=== PATIENT | male | born 1960 | race Caucasian/White ===

== ENCOUNTER 2017-05-07 23:40 | Observation (INO) ==
[2017-05-08 00:44] LABS: Basophils % 0.3 %; Eosinophils # 0.1 K/mcL (0.0-0.6); Eosinophils % 1.5 %; Hematocrit 41.3 % (37.5-50.1); Hemoglobin 13.9 g/dL (12.9-16.9); Immature Granulocytes % 0.3 % (0-4); Immature Platelets 5.7 % (1.1-6.1); Lymphocytes # 1.5 K/mcL (0.6-4.6); Lymphocytes % 22.7 %; Mean Corpuscular HGB Conc 33.7 g/dL (31.6-35.5); Mean Platelet Volume 11.4 fL (9.4-12.4); Monocytes # 0.4 K/mcL (0.0-1.3); Monocytes % 6.7 %; Neutrophils # 4.5 K/mcL (1.6-8.9); Platelet Count 131 K/mcL (140-400); Red Blood Count 4.49 M/mcL (4.19-5.50); Segmented Neutrophils % 68.5 %
[2017-05-08 00:56] LABS: BUN/Creatinine Ratio 17 (6-26); Blood Urea Nitrogen 17 mg/dL (8-26); Calcium 9.4 mg/dL (8.6-10.8); Carbon Dioxide 26 mEq/L (19-29); Chloride 107 mEq/L (98-109); Glucose 91 mg/dL (70-99); Osmolality,Calculated 293 (280-300); Sodium 141 mEq/L (136-145); eGFR For African Americans > 60 (> 60); eGFR For Non-African Americans > 60 (> 60)
[2017-05-08] MEDS ORDERED: Aspirin 81 MG TAB.CHEW PO ONE (02:38)
[2017-05-08] MEDS ORDERED: Nitroglycerin 0.4 MG TAB.SUBL SL PRN (02:39)
--- NOTE | 2017-05-08 03:16 | Emergency Department Note ---
Disposition Clinical Impression: Chest pain Qualifiers: Chest pain type: unspecified Qualified Code(s): R07.9 - Chest pain, unspecified Disposition: Admitted As Inpatient Condition: Good Time of Disposition: 04:33 Chest Pain HPI - General Chief Complaint: ED Chest Pain Stated Complaint: chest pain, leg pain, runny nose Time Seen by Provider: 05/08/17 02:22 Source: patient Limitations: no limitations Vital Signs Reviewed: Yes Nursing Notes Reviewed: Yes - History of Present Illness HPI Narrative: This is a 57-year-old male with a past medical history of smoking, hypertension who presents to the emergency department with chest pressure that started about 7 hours ago. He states that he was lying down when it occurred. Nothing has made it better. He denies any radiation into his arms or back. He denies that the chest pressure was exertional. He denies nausea, vomiting, diaphoresis. Patient states that he is having ongoing cold for the past 5 days. He states that he is having cough that is productive of yellow sputum. Severity scale (1-10): 6 - Related Data Home Medications Medication Instructions Recorded Confirmed Lisinopril-HCTZ 20-12.5 [Prinzide 1 tab PO DAILY 05/08/17 05/08/17 20-12.5] Omeprazole [PriLOSEC] 40 mg PO DAILY 05/08/17 05/08/17 Tramadol HCl [Ultram] 50 mg PO QID PRN 05/08/17 05/08/17 diazePAM [Valium] 10 mg PO BID 05/08/17 05/08/17 Previous Rx's Medication Instructions Recorded Aspirin [Lo-Dose Aspirin EC] 81 mg PO DAILY #30 tablet. 05/09/17 Atorvastatin [Lipitor] 40 mg PO HS #30 tablet 05/09/17 Metoprolol [Lopressor] 12.5 mg PO BID #30 tab 05/09/17 Nitroglycerin 0.4 mg SL Q5MIN PRN #5 05/09/17 Allergies Allergy/AdvReac Type Severity Reaction Status Date / Time No Known Allergies Allergy Verified 04/02/16 13:22 All systems ED: reviewed and negative except as stated. Constitutional: Reports: fever Cardiovascular: Reports: chest pain (Pressure that "feels like a truck is pressing his chest") Respiratory: Reports: cough, wheezes, sputum production. Denies: hemoptysis Gastrointestinal: Denies: abdominal pain, nausea, vomiting, diarrhea, constipation Musculoskeletal: Denies: back pain, neck pain Chest Pain PMH - Past Medical History Medical history: Reports: GERD, hypertension, other Psychiatric history: Reports: no psych history - Social History Smoking Status: Current every day smoker Alcohol use: Reports: none Drug use: Reports: none Physical Exam - General Limitations: no limitations General appearance: alert, in no apparent distress - Head Head exam: atraumatic, normocephalic - Eye Eye exam: Absent: scleral icterus, conjunctival injection - ENT ENT exam: normal oropharynx, mucous membranes moist - Neck Neck exam: Present: full ROM, trachea midline. Absent: tenderness, meningismus - Chest Chest inspection: Present: normal inspection, symmetric chest wall rise. Absent : tenderness, rash - Respiratory Respiratory exam: Present: wheezes. Absent: respiratory distress, accessory muscle use - Cardiovascular Cardiovascular exam: Present: regular rate, normal rhythm, normal heart sounds - Abdominal Exam Abdominal exam: Present: soft, Non-Tender. Absent: distention, guarding, rebound, rigidity - Extremities Exam Extremities exam: Present: normal capillary refill, other (Tenderness of the right lateral malleolus). Absent: joint swelling - Neurological Exam Neurological exam: Present: alert, oriented X3 - Psychiatric Psychiatric exam: Present: normal affect, normal mood - Skin Skin exam: Present: warm, dry, intact Course Course Narrative: This is a 57-year-old male with a past medical history of hypertension, smoking. He presents to the emergency department with a chief complaint of chest pressure that started several hours ago. He states that he came into the emergency department because he had never had pain like this before. This is immediately concerning for myocardial infarction. An EKG, chest x-ray, troponin , CBC, BMP were obtained. The patient was also given nitroglycerin and 325 of aspirin. Ankle X-Ray 05/08/17 03:08 IMPRESSION: Remote ORIF. No evidence of an acute injury. D/ / Ger Luque MD / Ger Luque MD Interpreting Provider: Ger Luque MD Chest X-Ray 05/08/17 23:51 IMPRESSION: 1. No acute cardiopulmonary disease. D/ / Edison Bravo MD / Edison Bravo MD Interpreting Provider: Edison Bravo MD Vital Signs Temperature 97.6 F 05/07/17 23:42 Pulse Rate 66 05/07/17 23:42 Respiratory Rate 18 05/07/17 23:42 Blood Pressure 142/91 05/07/17 23:42 O2 Sat by Pulse Oximetry 99 05/07/17 23:42 Temperature 97.8 F 05/08/17 05:01 Pulse Rate 59 05/08/17 05:01 Respiratory Rate 16 05/08/17 05:01 Blood Pressure 128/84 05/08/17 05:01 O2 Sat by Pulse Oximetry 98 05/08/17 05:01 Oxygen Delivery Oxygen Delivery Room Air - Reevaluation(s) Reevaluation #1: The patient's chest x-ray was negative, he did not have any ischemic changes on his EKG, and his initial troponin was negative. This nitroglycerin relieved his pain. At this time, I believe this patient should be admitted to the hospital for observation due to this being a new onset chest pressure that he had never had before along with his risk factors of hypertension, history of smoking, being a male, and also being 57. Nitroglycerin relieving his pain concerns me even more for cardiac ischemia as the cause for his chest pain. I spoke with Dr. Meeks on the phone, and he agreed to admit the patient for further observation. Time: 04:19 Vital Signs Temperature 97.6 F 05/07/17 23:42 Pulse Rate 66 05/07/17 23:42 Respiratory Rate 18 05/07/17 23:42 Blood Pressure 142/91 05/07/17 23:42 O2 Sat by Pulse Oximetry 99 05/07/17 23:42 Temperature 97.6 F 05/09/17 11:49 Pulse Rate 59 05/09/17 11:49 Respiratory Rate 16 05/09/17 11:49 Blood Pressure 134/82 05/09/17 11:49 O2 Sat by Pulse Oximetry 98 05/09/17 11:49 Oxygen Delivery Oxygen Delivery Room Air Chest Pain - Medical Records Medical records reviewed: Yes I reviewed the patient's medical records. - Lab Data Lab results reviewed: Yes I reviewed the patient's lab results. Result diagrams: 05/08/17 00:35 05/08/17 00:35 Lab Results 05/08/17 05/08/17 05/08/17 Range/Units 00:35 00:35 00:35 WBC 6.6 (4.3-11.1) K/mcL RBC 4.49 (4.19-5.50) M/mcL Hgb 13.9 (12.9-16.9) g/dL Hct 41.3 (37.5-50.1) % MCV 92.0 (83.0-100.0) fL MCH 31.0 (28.0-33.3) pg MCHC 33.7 (31.6-35.5) g/dL RDW 14.0 (11.5-14.5) % Plt Count 131 L (140-400) K/mcL MPV 11.4 (9.4-12.4) fL Immature Gran % 0.3 (0-4) % Seg Neutrophils % 68.5 % Lymphocytes % 22.7 % Monocytes % 6.7 % Eosinophils % 1.5 % Basophils % 0.3 % Neutrophils # 4.5 (1.6-8.9) K/mcL Lymphocytes # 1.5 (0.6-4.6) K/mcL Monocytes # 0.4 (0.0-1.3) K/mcL Eosinophils # 0.1 (0.0-0.6) K/mcL Basophils # 0.0 (0.0-0.2) K/mcL Immature Plt Fraction 5.7 (1.1-6.1) % Sodium 141 (136-145) mEq/L Potassium 4.0 (3.5-4.5) mEq/L Chloride 107 (98-109) mEq/L Carbon Dioxide 26 (19-29) mEq/L BUN 17 (8-26) mg/dL Creatinine 0.98 (0.72-1.25) mg/dL Est GFR ( Amer) > 60 (> 60) Est GFR (Non-Af Amer) > 60 (> 60) BUN/Creatinine Ratio 17 (6-26) Glucose 91 (70-99) mg/dL Calculated Osmolality 293 (280-300) Calcium 9.4 (8.6-10.8) mg/dL Troponin I 0.00 (0-0.03) ng/mL 05/08/17 Range/Units 04:06 WBC (4.3-11.1) K/mcL RBC (4.19-5.50) M/mcL Hgb (12.9-16.9) g/dL Hct (37.5-50.1) % MCV (83.0-100.0) fL MCH (28.0-33.3) pg MCHC (31.6-35.5) g/dL RDW (11.5-14.5) % Plt Count (140-400) K/mcL MPV (9.4-12.4) fL Immature Gran % (0-4) % Seg Neutrophils % % Lymphocytes % % Monocytes % % Eosinophils % % Basophils % % Neutrophils # (1.6-8.9) K/mcL Lymphocytes # (0.6-4.6) K/mcL Monocytes # (0.0-1.3) K/mcL Eosinophils # (0.0-0.6) K/mcL Basophils # (0.0-0.2) K/mcL Immature Plt Fraction (1.1-6.1) % Sodium (136-145) mEq/L Potassium (3.5-4.5) mEq/L Chloride (98-109) mEq/L Carbon Dioxide (19-29) mEq/L BUN (8-26) mg/dL Creatinine (0.72-1.25) mg/dL Est GFR ( Amer) (> 60) Est GFR (Non-Af Amer) (> 60) BUN/Creatinine Ratio (6-26) Glucose (70-99) mg/dL Calculated Osmolality (280-300) Calcium (8.6-10.8) mg/dL Troponin I 0.01 (0-0.03) ng/mL - Radiology Data Radiology results reviewed: Yes I reviewed the patient's radiology results. - EKG Data EKG attestation: Yes I reviewed and interpreted this EKG. EKG results narrative: 05/07/2017 2348 Ventricular rate 66 bpm, OK interval 190 ms, QRS duration 95 ms, QT 399 ms, QTC 412 ms, normal axis. Sinus rhythm with a shortened OK interval. Left ventricular hypertrophy. RSR prime in leads V1 that is consistent with an EKG performed on 11/01/2001. There is a new RSR prime in lead V2. There are no ST changes that are consistent with ischemia. Heart Score - Score History: Slightly Suspicious EKG: Normal Age: 45-65 Risk Factors: Equal/Greater than 3 risk factor or history of atherosclerotic disease Troponin: Less than normal limit HEART Score Total: 3 Attestation Statement - Attestation Attestation: I examined this patient and my medical decision-making was reviewed with the Resident Physician, Dr. Mayes. I agree with the documented findings, disposition and treatment plan as described except to the extent set forth below. Pt is a 57 yo wm, hx CAD with OHS who has not f/u with his doctors for past 5 yrs with c/o CP. Pt with hx HTN. Sxs relieved with ASA nitro. I agree with pt's PE findings as documented. EKG without ischemic changes. Labs and CXR unremarkable. Will admit for further eval/tx. Accepted by hospitalist.
[2017-05-08] MEDS: Nicotine 14 MG PATCH.TD24 TD ONE ×2 (03:31→09:15)
[2017-05-08] MEDS ORDERED: Nitroglycerin 1 INCH/GM PACKET TP ONE (03:44)
[2017-05-08] MEDS: traMADol 50 MG TABLET PO PRN ×3 (06:51→20:26)
[2017-05-08] MEDS: diazePAM 10 MG TABLET PO SCH ×2 (09:14→20:25)
[2017-05-08] MEDS ORDERED: Acetaminophen 325 MG TABLET PO PRN (09:33)
[2017-05-08] MEDS ORDERED: Ondansetron 4 MG/2 ML VIAL IVP PRN (09:33)
[2017-05-08] MEDS ORDERED: Mag Hydrox/Al Hydrox/Simeth 30 ML UDC PO PRN (09:33)
[2017-05-08] MEDS ORDERED: Naloxone 0.4 MG/ML INJ IVP PRN (09:33)
[2017-05-08] MEDS ORDERED: *HR* Morphine 2 MG/ML SYRINGE IVP PRN (09:33)
--- NOTE | 2017-05-08 10:26 | Internal Med History&Physical ---
<Farheen Mathur - Last Filed: 05/08/17 12:45> Date of Encounter: 05/08/17 Time of Encounter: 10:26 Assessment and Plan (1) Chest pain Current visit: Yes Status: Acute 1 patient has sudden onset of chest pressure nonradiating which was relieved with nitroglycerin. Cardiac troponin was 0 we will continue to trend troponins 2 continuous cardiac monitoring 3 we will obtain lipid profile in a.m. 4 nitroglycerin and morphine as needed for chest pain 5 we will consult cardiology 6 continue with aspirin 7 p.m. after midnight for stress test in a.m. Qualifiers: Chest pain type: unspecified Qualified Code(s): R07.9 - Chest pain, unspecified (2) Hypertension Current visit: No Status: Chronic 1 presently controlled we will continue with home medications lisinopril/HCTZ Qualifiers: Hypertension type: essential hypertension Qualified Code(s): I10 - Essential (primary) hypertension (3) Smoking greater than 40 pack years Current visit: No Status: Chronic 1 encouraged patient to stop smoking he expressed that he has no interest in quitting nicotine patch as needed Internal Medicine - H&P: HPI Chief complaint: cp Admitted From: Emergency Dept Plans for Post Hospital Care: Home History of present illness: Mr. You is a 57 year old male past medical history of hypertension and tobacco use. According to the patient last night after eating ribs, he decided to take a shower and then he went outside to smoke approximately 10 PM. While outside he did develop midsternal chest pressure described as a truck sitting on his chest and nonradiating with no associated symptoms. There were no relieving or aggravating factors. He has been experiencing cold symptoms which she at first thought were contributing to his chest pain, however the pain continued for approximately 3-4 hours. She became concerned and went to the ER for evaluation. According to ER records lab work was unremarkable troponin was 0 EKG sinus rhythm with no ST-T wave abnormalities. Chest x-ray was clear patient was given aspirin and nitroglycerin which he states relieved his pain he was also given nicotine patch. He has been admitted for further workup and evaluation. [place] patient does not appear to be any respiratory distress denies any chest pain at this time his lung sounds are clear heart sounds are regular S1 and S2 with no murmurs clicks, murmurs noted abdomen soft nontender no lower extremity edema noted. He denies any fevers chills nausea vomiting diarrhea abdominal pain. He is hemodynamically stable at this time. I reviewed his his with Dr. Angela who agrees with plan. Past Med Surg Social Fam HX - Past Medical History Medical history: GERD, hypertension, other Psychiatric history: no psych history - Past Surgical History Surgical History: orthopedic, other - Social History Smoking Status: Current every day smoker Packs per day: 1 Smokeless Tobacco Status: No Alcohol use: none Drug use: none - Family History Mother Family Member Ethnicity: Non- Living Status: Age at : 88 Hx Family Cardiac Disorders: Yes (aneurysm) Hx Family Neuromuscular Disorders: Yes (Parkinson's) Hx Family Neurologic Disorders: Yes (Alzheimers) Brother Family Member Ethnicity: Non- Living Status: Still Living Hx Family Cardiac Disorders: Yes (aneurysm) Internal Medicine - H&P: Meds Lisinopril-HCTZ 20-12.5 [Prinzide 20-12.5] 1 tab PO DAILY 05/08/17 [History] Omeprazole [PriLOSEC] 40 mg PO DAILY 05/08/17 [History] Tramadol HCl [Ultram] 50 mg PO QID PRN 05/08/17 [History] diazePAM [Valium] 10 mg PO BID 05/08/17 [History] 3 Allergy/AdvReac Type Severity Reaction Status Date / Time No Known Allergies Allergy Verified 04/02/16 13:22 All Systems PM: A 10-system review of systems was performed and is negative for pertinent findings except as documented above in the HPI. - Constitutional Constitutional: no chills, no fever(s), no night sweats - EENT Eyes: no change in vision, no discharge, no pain, no photophobia Ears: no ear discharge, no ear pain, no tinnitus Nose, mouth and throat: no dysphagia, no nasal discharge, no neck pain, no sore throat - Cardiovascular Cardiovascular ROS IM: no chest pain, no diaphoresis, no dyspnea, no lightheadedness, no palpitations, no syncope - Respiratory Respiratory: cough - Gastrointestinal Gastrointestinal: no abdominal pain, no diarrhea, no hematemesis, no hematochezia, no melena, no nausea, no vomiting - Musculoskeletal Musculoskeletal ROS IM: no numbness, no tingling - Integumentary Integumentary IM: no rash, no unusual bruising - Neurological Neurological ROS: no confusion, no convulsions, no focal weakness, no numbness, no tingling, no tremor(s) - Hematologic/Lymphatic Hematologic/Lymphatic: no easy bruising - Constitutional Vitals: Temp Pulse Resp BP Pulse Ox 97.7 F 62 17 110/66 95 05/08/17 07:49 05/08/17 07:49 05/08/17 07:49 05/08/17 07:49 05/08/17 07:49 General appearance: Present: A&O X 3, answers questions appropriately - Head Head exam: Present: atraumatic, normocephalic - Eye Eye exam: Present: PERRL, conjuntiva pink, sclera anicteric Pupils: Present: PERRL - Neck Neck exam general surgery: Present: supple, trachea midline. Absent: lymphadenopathy - Respiratory Respiratory exam: Present: CTAB. Absent: accessory muscle use, rales, rhonchi, wheezes - Cardiovascular Cardiovascular exam: Present: RRR, +S1, +S2. Absent: diastolic murmur, gallop, rubs, systolic murmur - GI/Abdominal GI/Abdominal exam: Present: normal bowel sounds, soft, no peritoneal signs. Absent: distended, tenderness - Extremities Exam Extremities exam: Present: warm, radial pulses palpable and symmetrical. Absent : calf tenderness, cyanotic, pedal edema - Neurological Exam Neurological exam: Present: CN II-XII intact, oriented X3, no focal deficits. Absent: pronater drift, facial droop, speech deficit - Skin Skin exam: Present: dry, intact Internal Med - H&P Results - Labs CBC & Chem 7: 05/08/17 00:35 05/08/17 00:35 Labs: Cardiac Enzymes 05/08/17 Range/Units 08:57 Troponin I 0.01 (0-0.03) ng/mL - EKG Data EKG shows normal: sinus rhythm - Impressions ITS Impressions Chest X-Ray 05/08/17 23:51 IMPRESSION: 1. No acute cardiopulmonary disease. D/ / Edison Bravo MD / Edison Bravo MD Interpreting Provider: Edison Bravo MD - Diagnostic Studies Other Images Additional comments: Ankle X-Ray 05/08/17 03:08 IMPRESSION: Remote ORIF. No evidence of an acute injury. D/ / Ger Luque MD / Ger Luque MD Interpreting Provider: Ger Luque MD Chest X-Ray 05/08/17 23:51 IMPRESSION: 1. No acute cardiopulmonary disease. D/ / Edison Bravo MD / Edison Bravo MD Interpreting Provider: Edison Bravo MD <Kaitlyn Angela - Last Filed: 05/08/17 13:16> Date of Encounter: 05/08/17 Internal Medicine - H&P: HPI History of present illness: Mr. You is a 57 year old male All Systems PM: A 10-system review of systems was performed and is negative for pertinent findings except as documented above in the HPI. - Constitutional Vitals: Temp Pulse Resp BP Pulse Ox 98.0 F 70 18 112/80 97 05/08/17 11:16 05/08/17 11:16 05/08/17 11:16 05/08/17 11:16 05/08/17 11:16 Internal Med - H&P Results - Labs CBC & Chem 7: 05/08/17 00:35 05/08/17 00:35 Labs: Cardiac Enzymes 05/08/17 Range/Units 08:57 Troponin I 0.01 (0-0.03) ng/mL - Impressions ITS Impressions Chest X-Ray 05/08/17 23:51 IMPRESSION: 1. No acute cardiopulmonary disease. D/ / Edison Bravo MD / Edison Bravo MD Interpreting Provider: Edison Bravo MD - Attending Attestation I saw the patient personally and examined the patient personally and discussed the case with advanced nurse practitioner. Apparently patient came in with chest pain which resolved with nitroglycerin while he has couple of risk factors including hypertension and his smoking as well as positive family history. He is planned to get a stress stress and I have spoken to cardiology who will see the patient. His chest examination is quite unremarkable.
[2017-05-08] MEDS: Lisinopril-HCTZ 20-12.5mg TABLET PO SCH (10:57)
[2017-05-08] MEDS: 0.9 % Sodium Chloride 1,000 ML IVC SCH ×2 (10:58→19:24)
--- NOTE | 2017-05-08 12:02 | Cardiology Consult Note ---
Date of Encounter: 05/08/17 Time of Encounter: 11:45 Assessment and Plan (1) Chest pain Current Visit: Yes Status: Acute Typical chest pain symptoms. Chest heaviness with activity that was releived with NTG. Only one occurance. No previous chest pain leading up to this event. EKG shows no acute changes. Troponin negative. Agree with stress test. Stress test cancelled today d/t nicotine patch. Recommend holding nicotine or NTG at midnight tonight. Patient agreeable to stay to proceed with stress test. Qualifiers: Chest pain type: unspecified Qualified Code(s): R07.9 - Chest pain, unspecified (2) Hypertension Current Visit: No Status: Chronic B/p acceptable. Continue lisinopril. Qualifiers: Hypertension type: essential hypertension Qualified Code(s): I10 - Essential (primary) hypertension (3) Smoking greater than 40 pack years Current Visit: No Status: Chronic Smoking cessation discussed. States that he will not quit smoking. Discussion w patient/family: The assessment and plan as outlined above was discussed with the patient and/or family members who expressed understanding and agreement. All questions were answered. Thank you for involving us in the care of your patient. Please call with any questions. History of Present Illness Consult date: 05/08/17 Requesting physician: Kaitlyn Angela Consult reason: Chest pain Chief complaint: Chest pain History of present illness: Mr. You is a 57 year old male with a history of hypertension and tobacco use who presented with chest pain. He reports eating ribs, taking a shower, and then immediately going outside to smoke when he developed mid-sternal chest pressure. He sat down for a while with no relief. After an hour of pain he decided to go to the ER. He c/o cold like symptoms for three weeks including cough, runny nose, and fatigue. He was instructed to use over the counter medication for his symptoms but he did not try anything. He denies history of CAD. Denies previous LHC or stress test. Past Med Surg Social Fam HX - Past Medical History Medical history: GERD, hypertension, other Psychiatric history: no psych history - Past Surgical History Surgical History: orthopedic, other - Social History Smoking Status: Current every day smoker Packs per day: 1 Smokeless Tobacco Status: No Alcohol use: none Drug use: none - Family History Mother Family Member Ethnicity: Non- Living Status: Age at : 88 Hx Family Cardiac Disorders: Yes (aneurysm) Hx Family Neuromuscular Disorders: Yes (Parkinson's) Hx Family Neurologic Disorders: Yes (Alzheimers) Brother Family Member Ethnicity: Non- Living Status: Still Living Hx Family Cardiac Disorders: Yes (aneurysm) Medications and Allergies Lisinopril-HCTZ 20-12.5 [Prinzide 20-12.5] 1 tab PO DAILY 05/08/17 [History] Omeprazole [PriLOSEC] 40 mg PO DAILY 05/08/17 [History] Tramadol HCl [Ultram] 50 mg PO QID PRN 05/08/17 [History] diazePAM [Valium] 10 mg PO BID 05/08/17 [History] 3 Allergy/AdvReac Type Severity Reaction Status Date / Time No Known Allergies Allergy Verified 04/02/16 13:22 All Systems Review: A 10-system review of systems was performed and is negative for pertinent findings except as documented above in the HPI. Physical Examination Vital Signs, Last 4 Hours Temp Pulse Resp BP Pulse Ox 05/08/17 11:16 98.0 F 70 18 112/80 97 General: Conversant, No Apparent Distress, Other (disheveled) HEENT: Atraumatic, Normocephaly, Mucus Membranes Moist Neck: No JVD, Normal carotid pulses Cardiac: Reg Rate and Rhythm, Normal S1 and S2, No Murmur Lungs: Normal Breath Sounds, No Wheeze, Rales, Rhonchi Neuro: Alert and responsive, No focal deficits noted Abdomen: Soft, Non-Tender Skin: No rashes noted on visualized skin Musculoskeletal: No Chest Wall Tenderness Extremities: No Clubbing, No Cyanosis, No Edema, Normal Pulses Results 05/08/17 00:35 05/08/17 00:35 Lab Results 05/08/17 08:57 Troponin I 0.01 - Imaging and Cardiology Stress Test: pending - EKG Interpretation EKG results cardiology: personally reviewed (Sr with no acute changes) Consult Discharge Plan - Plan Referrals: Kleber Angeles, PAC [Primary Care Provider] -
--- NOTE | 2017-05-08 17:08 | Electrocardiograph Report ---
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
[2017-05-09] MEDS: traMADol 50 MG TABLET PO PRN ×2 (01:28→09:20)
[2017-05-09] MEDS: 0.9 % Sodium Chloride 1,000 ML IVC SCH (01:28)
[2017-05-09 05:50] LABS: Chol/HDL Ratio 4.5 (0-4.9)
[2017-05-09] MEDS: Lisinopril-HCTZ 20-12.5mg TABLET PO SCH (09:19)
[2017-05-09] MEDS: diazePAM 10 MG TABLET PO SCH (09:21)
--- NOTE | 2017-05-09 09:39 | Internal Med Progress Note ---
Date of Encounter: 05/09/17 Time of Encounter: 09:38 - Constitutional Vitals: Temp Pulse Resp BP Pulse Ox 97.8 F 64 16 115/70 94 05/09/17 09:25 05/09/17 09:25 05/09/17 09:25 05/09/17 09:25 05/09/17 09:25 General appearance: Present: A&O X 3, answers questions appropriately Internal Medicine: Result - Labs CBC & Chem 7: 05/08/17 00:35 05/08/17 00:35 Labs: Cardiac Enzymes 05/08/17 Range/Units 08:57 Troponin I 0.01 (0-0.03) ng/mL Consult Discharge Plan - Plan Referrals: Kleber Angeles, PAC [Primary Care Provider] -
--- NOTE | 2017-05-09 11:29 | Nuclear Medicine Stress Report ---
Exercise Nuclear Stress Name: Ced You Date of Study: 05/09/2017 Date: 1960 Ht: 68.0 in Medical Record#: [id number] Age: 57 Wt: 174.0 lb Gender: Male Order #: [id number] Location: [facility] IP Room: [facility] (Formerly [facility]) Supervising Provider: Tejinder Orellana CNP Reading Physician: Perla Lambert DO Ordering Physician: Francisco Thakkar MD Primary Care Physician: Kleber Angeles, PAC Stress Technologist: Carlos A Almanzar, RAILROAD POLICE, CPFT Residential Sales Representative: Yu Vaughan Indications: Chest Pain Impression: Perfusion imaging was negative for ischemia or infarct. Exercise ECG was negative for ischemia. Occasional PACs and short runs of SVT during exercise. Gated EF = >70%. History: Hypertension History of Smoking Stress Test Summary: Stress Test Type: Treadmill Protocol: Manjit Baseline Information: Initial Heart Rate: 69 Blood Pressure: 140/82 Stress Information: Stress Time: 8 min 40 sec Test Terminated Due to (primary): Dyspnea Maximum Blood Pressure: 174/80 Maximum Heart Rate: 142 Percent Maximum Heart Rate Achieved: 88 Double Product: 41683 METS Reached: 10.1 Symptoms: Shortness of breath, Fatigue Nuclear Summary: SPECT myocardial perfusion imaging using Tc99m Sestamibi given intravenously was performed at rest and following cardiac stress testing. The resting images were obtained following initial dose of 10.7 mCi. Following stress an additional dose of 31.4 mCi was given at peak exercise or 30 seconds post regadenoson infusion. Medication Given: Time Medication Dose Units Route Findings: Stress Note * Resting ECG demonstrated sinus bradycardia. There are diffuse nonspecific ST abnormalities consistent with early repolarization. * Peak exercise ECG is negative for ischemia. * Occasional PACs and short runs of SVT (3 beats) noted during stress. * Patient had no chest pain during stress. * The exercise capacity was good. Hemodynamic responses * Normal hemodynamic responses to exercise. Study Quality * Study quality is good. Gated EF > 70% * Gated EF > 70%. Left Ventricle * The left ventricle is not dilated. NORMALS * Normal wall motion. * There is a small size, mild intensity fixed basal-mid inferolateral perfusion defect consistent with artifact. * Other segments demonstrate normal rest and stress perfusion. TID * No evidence of transient ischemic dilatation. * Lung Uptake * There is no evidence of increase lung uptake. Updated by Perla Lambert on 05/09/2017 11:23:33 AM electronically signed on 05/09/2017 11:25:46 AM with status of Final
--- NOTE | 2017-05-09 11:47 | Cardiology Progress Note ---
Date of Encounter: 05/09/17 Time of Encounter: 09:00 Assessment and Plan (1) Chest pain Current Visit: Yes Status: Acute Typical chest pain symptoms. Chest heaviness with activity that was relieved with NTG. Only one occurrence. No previous chest pain leading up to this event. EKG shows no acute changes. Troponin negative x3. Stress test completed today was negative for ischemia or infarct. There was small runs of SVT noted. Recommend beta-osorio. Aggressive risk factor modification. Cardiology will sign off. Out-pt f/u with cardiology in 2-3 weeks. Qualifiers: Chest pain type: unspecified Qualified Code(s): R07.9 - Chest pain, unspecified (2) Hypertension Current Visit: No Status: Chronic B/p acceptable. Continue lisinopril. Qualifiers: Hypertension type: essential hypertension Qualified Code(s): I10 - Essential (primary) hypertension (3) Smoking greater than 40 pack years Current Visit: No Status: Chronic Smoking cessation discussed. States that he will not quit smoking. Discussion w patient/family: The assessment and plan as outlined above was discussed with the patient and/or family members who expressed understanding and agreement. All questions were answered. Thank you for involving us in the care of your patient. Please call with any questions. Subjective Principal diagnosis: Chest pain Interval history: Patient seen in stress lab. Denies recurrent chest pain. Objective Vital Signs, Last 4 Hours Temp Pulse Resp BP Pulse Ox 05/09/17 09:25 97.8 F 64 16 115/70 94 General: Conversant, No Apparent Distress HEENT: Atraumatic, Normocephaly, Mucus Membranes Moist Neck: No JVD, Normal carotid pulses Cardiac: Reg Rate and Rhythm, Normal S1 and S2, No Murmur Lungs: Normal Breath Sounds, No Wheeze, Rales, Rhonchi Neuro: Alert and responsive, No focal deficits noted Abdomen: Soft, Non-Tender Skin: No rashes noted on visualized skin Musculoskeletal: No Chest Wall Tenderness Extremities: No Clubbing, No Cyanosis, No Edema, Normal Pulses Results 05/08/17 00:35 05/08/17 00:35 - Imaging and Cardiology Stress Test: report reviewed Consult Discharge Plan - Plan Referrals: Kleber Angeles, PAC [Primary Care Provider] - 05/18/17 10:00 am (already existed appointment per patient..)
[2017-05-09 11:49] VITALS: BP 134/82
--- NOTE | 2017-05-09 12:12 | Discharge Summary ---
<Yazan Thao T - Last Filed: 05/09/17 16:04> Date of Encounter: 05/09/17 - Discharge Medications Prescriptions: Nitroglycerin 0.4 mg SL Q5MIN PRN #5 PRN Reason: Chest Pain Aspirin [Lo-Dose Aspirin EC] 81 mg PO DAILY #30 tablet. Atorvastatin [Lipitor] 40 mg PO HS #30 tablet Metoprolol [Lopressor] 12.5 mg PO BID #30 tab Home Medications: Lisinopril-HCTZ 20-12.5 [Prinzide 20-12.5] 1 tab PO DAILY 05/08/17 [History] Omeprazole [PriLOSEC] 40 mg PO DAILY 05/08/17 [History] Tramadol HCl [Ultram] 50 mg PO QID PRN 05/08/17 [History] diazePAM [Valium] 10 mg PO BID 05/08/17 [History] Aspirin [Lo-Dose Aspirin EC] 81 mg PO DAILY #30 tablet. 05/09/17 [Rx] Atorvastatin [Lipitor] 40 mg PO HS #30 tablet 05/09/17 [Rx] Metoprolol [Lopressor] 12.5 mg PO BID #30 tab 05/09/17 [Rx] Nitroglycerin 0.4 mg SL Q5MIN PRN #5 05/09/17 [Rx] Allergies/Adverse Reactions: 3 Allergy/AdvReac Type Severity Reaction Status Date / Time No Known Allergies Allergy Verified 04/02/16 13:22 Procedures/tests Complete & Pending: Procedures Performed prior 72 hours Category Date Time Status NM michael perf SPECT multi [NM] Routine Exams 05/09/17 07:00 Taken ECG 12 lead ECG [ECG] AM 0600 Y 05/09/17 06:00 Ordered SP exercise nuclear stress Routine Y 05/09/17 07:05 Completed Date of admission: 05/08/17 04:16 Primary care physician: Kleber Angeles Consults: 05/08/17 12:31 Consult to Cardiology [CONS] Routine Comment: Consulting Provider: Cardiology Carolyne Reason for Consult: CP Time Notified: 12:31 Call Completed: Yes - Patient Status Disposition: Home, Self-Care Condition: Good - Discharge Instructions Instructions: Chest Pain (DC), How to Stop Smoking (DC), Heart Healthy Diet ( GEN), Chronic Hypertension (DC) Follow Up With: Kleber Angeles PAC [Primary Care Provider] - 05/18/17 10:00 am (already existed appointment per patient..) Manjit Jade MD [Partnered Physician] - (Follow up inpatient stay with cardiology in 1-2 weeks) Additional Instructions: Follow up with Cardiology in the next 1-2 weeks as recommended Follow up with your PCP in the next 3-5 days Return to the emergency department if you have recurrence of chest pain, chest pressure, or any other concerning medical problems. Hospital course: Mr. You is a 57 year old male - Time Spent with Patient Total time spent providing and/or coordinating discharge services: Greater than 30 minutes - Constitutional Vitals: Temp Pulse Resp BP Pulse Ox 97.6 F 59 16 134/82 98 05/09/17 11:49 05/09/17 11:49 05/09/17 11:49 05/09/17 11:49 05/09/17 11:49 - Attending Attestation I have independently seen and examined this patient on 05/09/17 , reviewed the EMR and discussed plan of care with the patient and resident physician 57 M admitted for chest pain.He has a PMH of HTN, Nicotine dependence. Trops negative X3, cardiology was consulted and stress test was ordered. Stress test negative. CXR was normal, EKG was non-ischemic. Lipid profile is unremarkable. Seen at bedside, denies new complains. Physical exam is unremarkable. ASCVD score 12%. Stress test is negative, SVTs noted on telemetry Plan is to start and discharge home on moderate intensity statin, ASA and BB. Follow up with PCP Tobacco cessation counselling done <Tobi Duran - Last Filed: 05/10/17 17:01> Date of Encounter: 05/10/17 Time of Encounter: 12:07 - Discharge Diagnosis (1) Chest pain Priority: Primary Status: Acute Qualifiers: Chest pain type: unspecified Qualified Code(s): R07.9 - Chest pain, unspecified (2) Hypertension Priority: Primary Status: Chronic Qualifiers: Hypertension type: essential hypertension Qualified Code(s): I10 - Essential (primary) hypertension (3) Smoking greater than 40 pack years Priority: Primary Status: Chronic Procedures/tests Complete & Pending: Procedures Performed prior 72 hours Category Date Time Status NM michael perf SPECT multi [NM] Routine Exams 05/09/17 07:00 Taken ECG 12 lead ECG [ECG] AM 0600 Y 05/09/17 06:00 Ordered SP exercise nuclear stress Routine Y 05/09/17 07:05 Completed Date of admission: 05/08/17 04:16 Primary care physician: Kleber Angeles Consults: 05/08/17 12:31 Consult to Cardiology [CONS] Routine Comment: Consulting Provider: Cardiology Carolyne Reason for Consult: CP Time Notified: 12:31 Call Completed: Yes Discharging clinician: Tobi Duran Anticipated date of discharge: 05/09/17 - Patient Status Overall status at discharge: patient is back to baseline - Diet and Activity Activity: increase activity as tolerated Diet: low fat, low cholesterol Interval History: Mr. You is a 57-year-old male with a significant past history of hypertension tobacco abuse presents to the emergency department on 05/08/2017 with chest pain described as sudden onset, nonradiating and relieved by nitroglycerin. According to ER records lab work was unremarkable troponin was 0 EKG sinus rhythm with no ST-T wave abnormalities. Chest x-ray was clear patient was given aspirin and nitroglycerin which he states relieved his pain he was also given nicotine patch. He has been admitted for further workup and evaluation. Patient is placed on continuous environmental monitoring specialist, cardiology was consult is for involving care. Chest x-ray did not demonstrate any cardiopulmonary disease. Patient remained stable through the remainder of his inpatient stay. Trops negative X3, cardiology was consulted and stress test was ordered. Stress test negative. CXR was normal, EKG was non-ischemic. Lipid profile is unremarkable, Patient was seen and evaluated patient and deemed stable for discharge home. ASCVD score 12%. Stress test is negative, SVTs noted on telemetry - Patient started on statin and aspirin Nuclear Stress Test: Impression: Perfusion imaging was negative for ischemia or infarct. Exercise ECG was negative for ischemia. Occasional PACs and short runs of SVT during exercise. Gated EF = >70%. Hospital course: Mr. You is a 57 year old male - Time Spent with Patient Total time spent providing and/or coordinating discharge services: - Constitutional Vitals: Temp Pulse Resp BP Pulse Ox 97.6 F 59 16 134/82 98 05/09/17 11:49 05/09/17 11:49 05/09/17 11:49 05/09/17 11:49 05/09/17 11:49 General appearance: Present: A&O X 3, answers questions appropriately Exam: General: Patient alert, awake, oriented 3, interactive, in no acute distress HEENT: Normocephalic, atraumatic, pupils equal reactive to light, nasal cavity patent and open septum median position, oral mucosa moist, uvula midline, neck supple trachea midline no palpable lymphadenopathy, no thyromegaly. Chest: Symmetric bilateral correlating with respiratory effort, effort nonlabored. Cardiac: Regular rate and rhythm, positive S1, S2, no bruits appreciated bilateral carotids, Radial pulses 2+ bilateral, posterior tibial and dorsal pedal pulses 2+ bilateral. Respiratory: Clear to auscultation all lung sahni Abdomen: Soft, nontender, positive bowel sounds, no palpable masses appreciated on examination Extremities: Symmetric bilateral, no erythema or edema, patient moving all 4 extremities spontaneously. Neurologic: No focal deficits appreciated on examination. Face symmetric, muscle strength symmetric bilateral upper and lower extremities
== END 2017-05-09 12:50 | disposition home or self-care (01) ==
LOC: 2ANU 23:40 → EMEROO 23:40 → SUATTDRO 05-08 04:16 → 2ANU 05-08 04:36
PROVIDERS: ADMIT Internal Medicine; ATTEND Internal Medicine

== ENCOUNTER 2019-02-13 07:36 | Inpatient (IN) ==
[2019-02-13] MEDS ORDERED: Dexamethasone 4 MG/ML VIAL ONE (07:51)
[2019-02-13] MEDS ORDERED: *HR* Rocuronium Bromide 50 MG/5 ML VIAL ONE ×2 (07:51→10:08)
[2019-02-13] MEDS ORDERED: *HR* Propofol 200 MG/20 ML VIAL IVP ONE (07:51)
[2019-02-13] MEDS ORDERED: *HR* Succinylcholine 200 MG/10 ML VIAL IVP ONE (07:51)
[2019-02-13] MEDS ORDERED: *HR* Phenylephrine 10 MG/ML VIAL ONE (07:51)
[2019-02-13] MEDS ORDERED: *HR* FentaNYL (PF) 100 MCG/2 ML VIAL ONE ×2 (07:51→09:33)
[2019-02-13] MEDS ORDERED: Lidocaine -MPF 2% 2 ML VIAL ONE (07:51)
[2019-02-13] MEDS ORDERED: Famotidine 20 MG/2 ML VIAL IVP ONE (07:55)
[2019-02-13] MEDS ORDERED: Gabapentin 300 MG CAPSULE PO ONE (07:56)
[2019-02-13] MEDS ORDERED: Acetaminophen IV 1,000 MG/100 ML INFUS..BTL IVPB ONE (07:56)
[2019-02-13] MEDS ORDERED: Ringers Solution, Lactated 1,000 ML IVC SCH (08:00)
[2019-02-13] MEDS ORDERED: CeFAZolin Syr 2,000MG/20 ML 2,000 MG/20 ML SYRINGE IVPB ONE (08:02)
--- NOTE | 2019-02-13 08:28 | Anesthesia Evaluation PreOp ---
Date of Encounter: 02/13/19 Time of Encounter: 08:25 - Past History Planned Operation: Left Lower Lobectomy Robotic/Bronchoscopy Cardiac History: Denies any Significant Hx Pulmonary History: Former smoker, COPD GOLF COACH History: Denies Any Significant HX Other Medical History: Other (Anxiety) Anesthesia History: No Prior Anesthetic Complications Alcohol Use: none Drug use: marijuana Medications and Allergies Latanoprost [Xalatan] 1 drop BOTH EYES HS 02/13/19 [History] Allergy/AdvReac Type Severity Reaction Status Date / Time codeine AdvReac Itching Verified 09/18/18 18:36 - Meds/Allergy Pre-op Review Medications Reviewed: Yes Allergies Reviewed: Yes Beta Blockers on Current Med List: No Anesthesia Results - Labs Laboratory Tests 01/27/19 01/27/19 01/27/19 13:27 13:27 13:27 Hgb 14.7 Hct 43.0 Plt Count 143 PT 10.3 INR 0.9 APTT 33.5 Sodium 141 Potassium 4.0 BUN 17 Creatinine 0.72 - Imaging EKG: report reviewed (SR) Additional studies: Stress Test 2017 negative for ischemia Anesthesia Exam O2 Sat Height 1.73 m Weight 90.718 kg O2 Sat by Pulse Oximetry 96 Vital Signs Temp Pulse Resp BP Pulse Ox 97.4 F L 66 18 147/94 96 02/13/19 08:02 02/13/19 08:02 02/13/19 08:02 02/13/19 08:02 02/13/19 08:02 Height: 5'8 Weight: 200 lbs NPO (# of Hours): MN Pain Scale: 0 - HEENT Pupil (Motor): Pupils equal, EOMI Mallampati: II Teeth: Edentulous Oral Opening: Greater than 3 - GOLF COACH LOC: Oriented GOLF COACH Motor: Normal RUE, Normal LUE, Normal RLE, Normal LLE, Normal Face GOLF COACH Sensory: Normal: RUE, LUE, RLE, LLE, Face - Cardiac Rhythm: Regular Murmur: None JVD: No Carotid Bruit: No - Pulmonary Breath Sounds: bilateral Clear Respiratory Effort: Symmetrical Anesthesia Assess/Plan ASA Score: 3 (COPD) Level of consciousness: Cooperative, Oriented Anesthetic Plan: General Autologous Blood: No Monitoring Plan: Standard Monitors Recovery Plan: PACU (Discussed GA, agrees to proceed)
[2019-02-13] MEDS ORDERED: Albuterol 2.5 MG/3 ML NEBULIZER IH ONE (08:29)
--- NOTE | 2019-02-13 08:46 | History & Physical Report ---
Date of Encounter: 02/13/19 Time of Encounter: 08:45 24 Hour HP Update - Instructions Instructions: If the History and Physical is less than 30 days old and was completed prior to A.M. admission and or procedure and has NOT been updated on calendar day of procedure please complete this update prior to performing procedure. - Update Patient reports changes in Medical Condition: No Changes in examination, assessment, or condition: No Changes in Medication: No Preop tests/diagnostics Reviewed: Yes Pre-Op MRSA Screen: Negative Surgery Remains Indicated: Yes Consent for Planned Operative Procedure(s) Verified: Yes - Pre-Operative Checklist Preoperative Checklist Indicated: Yes Prophylactic Antibiotic Ordered: Yes Home Medications Include Beta Dulce Maria: No Beta Dulce Maria Taken Today (Day of Surgery): No Beta Dulce Maria Taken Yesterday (Day Prior to Surgery): No Is VTE Prophylaxis Indicated?: Yes
[2019-02-13] MEDS ORDERED: *HR* Midazolam HCl 2 MG/2 ML VIAL ONE (08:49)
[2019-02-13] MEDS ORDERED: Dexamethasone 4 MG/ML VIAL IVP ONE (10:16)
[2019-02-13] MEDS ORDERED: Ondansetron 4 MG/2 ML VIAL IVP ONE (10:16)
[2019-02-13] MEDS ORDERED: *HR* Promethazine 25 MG/ML VIAL IVP PRN (10:16)
[2019-02-13] MEDS ORDERED: *HR* OxyCODONE Immed Rel 5 MG TABLET PO PRN (10:16)
[2019-02-13] MEDS ORDERED: Ketorolac 30 MG/ML VIAL ONE (10:55)
[2019-02-13] MEDS ORDERED: SUGAMMADEX SODIUM 500 MG/5 ML VIAL IV ONE (10:55)
[2019-02-13] MEDS ORDERED: *HR* HYDROMORPHONE 2 MG/ML VIAL ONE (11:26)
--- NOTE | 2019-02-13 12:04 | Operative Note ---
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 After undergoing general anesthesia with sequential compressive devices on bilateral lower extremities and perioperative antibiotics on board, the diagnostic bronchoscopy was performed finding the on the patient for the first time for this left lower lobe lung cancer with mucosa throughout the tracheobronchial tree being pain was normal branching pattern. No endobronchial metastasis that would change. Patient was placed on the operating room table in the right lateral decubitus position with care to pad all pressure points prepped and draped in usual sterile fashion. Thoracoscopy ports were placed in the da Bj robot was docked were some abnormal pleural appearances were biopsied with intraoperative frozen section demonstrating no evidence of cancer. The inferior pulmonary ligament was mobilized. Lymph node stations 9 however did demonstrate carcinoma. Continue dissection as this was only lymph node. Inferior pulmonary vein was divided with the endothoracic stapler area fissure incised and the pulmonary artery divide endothoracic stapler. The fissure was divided with the endothoracic stapler and finally the bronchus divided with the endothoracic stapler. Hemostasis was excellent. Further lymph node dissection was performed. Lymph nodes at station 10 per above specimens. There was a calcified lymph node at station 6 granulomatous disease E did not remove this due to the dense desmoplastic reaction. Lobectomy was removed. Paravertebral nerve blocks performed. 28-German chest tube placed. Further lymph nodes were dissected out of the left lower lobe bronchus on the back table for the above specimens. The incisions were closed with 0 Vicryl and 4-0 Monocryl subcuticular stitches with dressings consisting of Steri-Strips and sterile gauze. Patient was extubated in the operating room and taken to the recovery period.
--- NOTE | 2019-02-13 13:01 | Anesthesia Evaluation Post Op ---
Date of Encounter: 02/13/19 Time of Encounter: 13:00 - Vital Signs Vital Signs: Vital Signs/O2 Sat/Glucose, Most Current Temp Pulse Resp BP Pulse Ox 02/13/19 12:39 98.1 F 70 18 136/101 95 02/13/19 12:29 74 18 144/102 95 02/13/19 12:19 97.6 F 75 20 146/107 93 02/13/19 12:09 75 20 147/91 93 02/13/19 11:59 97.4 F L 76 18 143/106 92 - Lungs Lungs: Clear Ascult./Percussion - Airway Airway: Non-obstructed - Cardiovascular Regular Rate - Mental Status Mental Status: Alert & Oriented, Answers Appropriately - Pain Pain Scale: 0 - Nausea Vomiting Nausea Vomiting: Not Present - Hydration Hydration: Ice chips - Discharge PostOp Status: Transfer Patient to floor
[2019-02-13] MEDS ORDERED: Naloxone 0.4 MG/ML INJ IVP PRN (13:39)
[2019-02-13] MEDS: Gabapentin 300 MG CAPSULE PO SCH ×2 (14:50→20:50)
[2019-02-13] MEDS: *HR* HYDROcodone/Acet 5/325 mg TABLET PO PRN (14:50)
[2019-02-13] MEDS ORDERED: Ipratropium/Albuterol Neb 3 ML ONE (14:54)
[2019-02-13] MEDS: 0.9 % Sodium Chloride 1,000 ML IVC SCH (15:00)
[2019-02-13] MEDS: Ipratropium/Albuterol Neb 3 ML IH SCH ×4 (15:15→20:09)
[2019-02-13] MEDS: Ketorolac 15 MG/ML VIAL IVP SCH ×3 (15:20→23:52)
[2019-02-13] MEDS: *HR* Heparin 5,000 UNIT/ML VIAL SQ SCH ×2 (15:21→20:50)
[2019-02-13] MEDS ORDERED: Ondansetron 4 MG/2 ML VIAL IVP PRN (18:26)
[2019-02-13] MEDS: Famotidine 20 MG TABLET PO SCH (20:54)
[2019-02-13] MEDS: Sennosides/Docusate Sodium TABLET PO SCH (20:54)
[2019-02-14] MEDS: Ipratropium/Albuterol Neb 3 ML IH SCH ×7 (00:20→23:37)
[2019-02-14] MEDS: *HR* HYDROcodone/Acet 5/325 mg TABLET PO PRN ×3 (01:03→08:24)
[2019-02-14] MEDS: 0.9 % Sodium Chloride 1,000 ML IVC SCH (04:54)
[2019-02-14] MEDS: *HR* Heparin 5,000 UNIT/ML VIAL SQ SCH ×3 (04:55→21:01)
[2019-02-14] MEDS: Ketorolac 15 MG/ML VIAL IVP SCH ×4 (04:55→23:04)
[2019-02-14 05:16] LABS: Hematocrit 45.7 % (37.5-50.1); Mean Corpuscular HGB Conc 32.8 g/dL (31.6-35.5); Mean Corpuscular Hemoglobin 31.2 pg (28.0-33.3); Mean Platelet Volume 11.2 fL (9.4-12.4); Platelet Count 112 K/mcL (140-400); Red Blood Count 4.81 M/mcL (4.19-5.50); Red Cell Distribution Width 13.2 % (11.5-14.5); White Blood Count 10.2 K/mcL (4.3-11.1)
[2019-02-14 05:31] LABS: BUN/Creatinine Ratio 24 (6-26); Blood Urea Nitrogen 17 mg/dL (8-23); Calcium 8.7 mg/dL (8.6-10.3); Carbon Dioxide 22 mEq/L (23-29); Chloride 107 mEq/L (98-107); Glucose 255 mg/dL (70-105); Magnesium 1.8 mg/dL (1.6-2.6); Osmolality,Calculated 296 (280-300); Potassium 4.2 mEq/L (3.5-5.1); Sodium 138 mEq/L (136-145); eGFR For African Americans > 60 (> 60); eGFR For Non-African Americans > 60 (> 60)
[2019-02-14] MEDS: Sennosides/Docusate Sodium TABLET PO SCH ×2 (08:24→21:02)
[2019-02-14] MEDS: Gabapentin 300 MG CAPSULE PO SCH ×3 (08:24→21:02)
[2019-02-14] MEDS: Famotidine 20 MG TABLET PO SCH ×2 (08:24→21:02)
--- NOTE | 2019-02-14 08:58 | Cardiothoracic Progress Note ---
Date of Encounter: 02/14/19 Time of Encounter: 08:56 - Assessment and plan (1) Cancer of lower lobe of left lung Current Visit: Yes Status: Acute The assessment and plan as outlined above was discussed with the patient and/or family members who expressed understanding and agreement. All questions were answered. reviewed data. replace mg, change to percocet (2) Hypertension Current Visit: No Status: Chronic The assessment and plan as outlined above was discussed with the patient and/or family members who expressed understanding and agreement. All questions were answered. Qualifiers: Hypertension type: essential hypertension - Subjective Interval history: discussed pain management, seeking pain medications, using medications that are 3 years old. Vital Signs, Last 4 Hours Temp Pulse Resp BP Pulse Ox 02/14/19 08:00 97.4 F L 91 16 124/88 94 02/14/19 07:49 20 98 02/14/19 07:27 97.4 F L 02/14/19 06:00 75 20 134/102 98 Oxgyen Flow Rate Oxygen Flow Rate (LPM) 2 Clinical Data, last 8 Hours Output, Chest Tube Drainage 0 Amount [Left Anterior Chest] Output, Chest Tube Drainage 0 Amount [Left Anterior Chest] Output, Urine Amount 750 Weight 02/12/19 02/13/19 02/14/19 23:59 23:59 23:59 Weight 90.718 kg 87.9 kg - Physical Examination General: Conversant, No Apparent Distress, Well developed, Well nourished HEENT: Normocephaly Cardiac: Reg Rate and Rhythm, Normal S1 and S2 Incision: No signs of infection, Dry/intact dressing Chest tubes: Minimal drainage Lungs: Normal Breath Sounds Neuro: Alert and responsive, No focal deficits noted, Cranial nerves intact, Motor nerves intact Abdomen: Soft, Non-tender Extremities: No Edema, Normal Pulses - Labs 02/14/19 04:31 02/14/19 04:31 Lab Results, Last 24 hours 02/14/19 02/14/19 04:31 04:31 WBC 10.2 Hgb 15.0 Hct 45.7 Plt Count 112 L Sodium 138 Potassium 4.2 Chloride 107 Carbon Dioxide 22 L BUN 17 Creatinine 0.72 Glucose 255 H Calcium 8.7 Magnesium 1.8 - Imaging Chest Xray: image reviewed Consult Discharge Plan - Plan Referrals: Sherlyn Garcia DO [Primary Care Provider] -
[2019-02-14] MEDS: *HR* OxyCODONE/APAP 5/325 TABLET PO PRN ×4 (10:54→23:04)
[2019-02-15] MEDS: Ipratropium/Albuterol Neb 3 ML IH SCH ×2 (04:02→08:02)
[2019-02-15] MEDS: Ketorolac 15 MG/ML VIAL IVP SCH (04:26)
[2019-02-15] MEDS: *HR* OxyCODONE/APAP 5/325 TABLET PO PRN ×2 (04:26→09:17)
[2019-02-15] MEDS: *HR* Heparin 5,000 UNIT/ML VIAL SQ SCH (04:26)
[2019-02-15 07:40] VITALS: BP 146/102
[2019-02-15] MEDS: Sennosides/Docusate Sodium TABLET PO SCH (07:47)
[2019-02-15] MEDS: Famotidine 20 MG TABLET PO SCH (07:47)
[2019-02-15] MEDS: Gabapentin 300 MG CAPSULE PO SCH (07:47)
--- NOTE | 2019-02-15 09:29 | Discharge Summary ---
Orders not resulted at time of discharge: Pending orders 02/12/19 07:57 Red Blood Cells [BBK] Routine 02/13/19 09:44 Surgical Pathology [PTH] Stat Date of Encounter: 02/15/19 Time of Encounter: 09:26 - Discharge Diagnosis (1) Cancer of lower lobe of left lung Priority: Primary Status: Acute - Hospital Course Hospital course: Mr. You is a 59 year old male The patient is a 59-year-old gentleman with a history of smoking who presented with a left lower lobe lung cancer. On 02/07/2019, Dr. Encarnacion took the patient to the operating room for left lower lobectomy, left pleural biopsy and lymph node dissection. The patient tolerated the procedure well. I saw the patient on February 15. At that time he was afebrile. Lungs were clear to percussion and auscultation. Heart was in a regular rate and rhythm. His incisions were all healing well without signs of infection. His chest tube drainage was minimal and there was no air leak. The chest tube was removed. A stat portable chest x-ray done after this revealed a very small left sub-pulmonic pneumothorax. The patient was discharged. He was to return to his previous and regular diet. He was to walk as much as possible but to avoid heavy lifting for a total of 2 months after surgery. He was to avoid driving for 1 month. He was to follow-up and see Dr. Encarnacion as directed and a follow-up with his other physicians including his primary care doctor as directed. He was told to return to the emergency room for any shortness of breath or chest pain. He was to call sooner for any difficulties. - Time Spent with Patient Total time spent providing and/or coordinating discharge services: - Discharge Medications Prescriptions: Continued Latanoprost [Xalatan] 1 drop BOTH EYES HS Multivit-Min/FA/Lycopen/Lutein [Centrum Silver Men Tablet] 1 tab PO DAILY Home Medications: Latanoprost [Xalatan] 1 drop BOTH EYES HS 02/13/19 [History] Multivit-Min/FA/Lycopen/Lutein [Centrum Silver Men Tablet] 1 tab PO DAILY 02/13/19 [History] Allergies/Adverse Reactions: Allergy/AdvReac Type Severity Reaction Status Date / Time codeine AdvReac Itching Verified 09/18/18 18:36 Date of admission: 02/13/19 13:18 Primary care physician: Sherlyn Garcia DO Procedure(s) Performed: 02/07/2019. Left lower lobectomy with left pleural biopsy and lymph node dissection. Physical Examination Vital Signs, Last 4 Hours Temp Pulse Resp BP Pulse Ox 02/15/19 08:02 16 96 02/15/19 07:37 97.6 F 75 18 146/102 96 - Patient Status Disposition: Home, Self-Care Condition: Fair Functional capacity at discharge: independent ambulation Overall status at discharge: patient is progressing back to baseline - Discharge Instructions Follow Up With: Sherlyn Garcia DO [Primary Care Provider] -
== END 2019-02-15 10:26 | disposition home or self-care (01) | DRG 164 ==
LOC: SAMDAY 07:36 → ICNU 13:18 → 2NNU 02-14 16:21
PROVIDERS: ADMIT Thoracic Surgery (Cardiothoracic Vascular Surgery); ATTEND Thoracic Surgery (Cardiothoracic Vascular Surgery)

== ENCOUNTER 2019-03-25 10:50 | Observation (INO) ==
--- NOTE | 2019-03-25 11:06 | Emergency Department Note ---
Disposition Clinical Impression: Neutropenia with fever Diarrheal stools Qualifiers: Diarrhea type: presumed infectious Qualified Code(s): R19.7 - Diarrhea, unspecified Disposition: Admitted As Inpatient Condition: Serious Time of Disposition: 14:08 General Adult HPI - General Chief complaint: ED Shortness of Breath/Dyspnea Stated complaint: ANGELA,Rash,Lung cancer pt Time Seen by Provider: 03/25/19 10:59 Source: patient Limitations: no limitations Nursing Notes Reviewed: Yes Vital Signs Reviewed: Yes - History of Present Illness HPI Narrative: Patient is here for fever chills vomiting and diarrhea which began this morning. Vague fatigue yesterday. No focal pain. Mild cough. First chemotherapy last week through left chest wall port for lung cancer which was found recently and left partial lung removal was done approximately one month ago. No abdominal pain. Well-appearing with stable vital signs. Onset (ago): hour(s) Radiation: non-radiation Pain Scale: 0 Consistency: intermittent Improves with: nothing Worsens with: nothing Associated symptoms: Reports: cough, malaise, nausea/vomiting. Denies: confusion, chest pain, diaphoresis - Related Data Home Medications Medication Instructions Recorded Confirmed Latanoprost [Xalatan] 1 drop BOTH EYES HS 02/13/19 03/25/19 Multivit-Min/FA/Lycopen/Lutein 1 tab PO DAILY 02/13/19 03/25/19 [Centrum Silver Men Tablet] Gabapentin [Neurontin] 300 mg PO TID 02/26/19 03/25/19 Clindamycin Phosphate [Cleocin T] 60 ml TP BID 03/25/19 03/25/19 Previous Rx's Medication Instructions Recorded Dexamethasone [Decadron] 2 tab PO BID #50 tab 02/28/19 Omeprazole [PriLOSEC] 20 mg PO BIDAC #30 cap 02/28/19 Ondansetron HCl [Zofran] 4 mg PO Q4H PRN #30 tablet 02/28/19 Prochlorperazine Maleate 10 mg PO Q6H PRN #30 tablet 02/28/19 [Compazine] Lidocaine/Prilocaine [Emla] 1 appl TP DAILY #30 gm 03/19/19 Oxycodone HCl/Acetaminophen 1 each PO Q6HR PRN 21 Days #84 03/19/19 [Percocet 5-325 mg Tablet] tablet Allergies Allergy/AdvReac Type Severity Reaction Status Date / Time codeine AdvReac Itching Verified 03/25/19 10:53 Constitutional: Reports: fever, chills, weakness Eyes: Denies: eye pain, eye discharge, vision change ENT ED: Denies: ear pain, throat pain, dental pain, hearing loss, epistaxis, congestion, dysphagia Cardiovascular: Denies: chest pain, palpitations, dyspnea on exertion, edema, syncope Respiratory: Denies: cough, dyspnea, wheezes, hemoptysis, stridor Gastrointestinal: Reports: as per HPI, nausea, vomiting, diarrhea Genitourinary: Denies: urgency, dysuria, frequency, hematuria Musculoskeletal: Denies: back pain, neck pain, arthralgia, myalgia Integumentary: Denies: rash, abrasion, lesions Neurological: Denies: headache, weakness, numbness, paresthesias, confusion, abnormal gait, vertigo Psychiatric: Denies: anxiety, depression, suicidal thoughts, homicidal thoughts, auditory hallucinations, visual hallucinations Endocrine: Denies: fatigue Hematological/Lymphatic: Denies: easy bleeding, easy bruising Allergic/Immunologic: Denies: facial swelling, urticaria Past Medical History - Past Medical History Medical history: Reports: arthritis, glaucoma, hepatitis, hypertension, myocardial infarction, RA, other Surgical history: Reports: orthopedic, other, other Psychiatric history: Reports: anxiety - Social History Smoking Status: Former smoker Smokeless Tobacco Status: No Alcohol use: Reports: none Drug use: Reports: none Physical Exam - General Limitations: no limitations General appearance: alert, in no apparent distress - Head Head exam: atraumatic, normocephalic, normal inspection - Eye Eye exam: Present: normal appearance, PERRL, EOMI - Expanded Eye Exam Pupils: Left: reactive - ENT ENT exam: normal exam, normal oropharynx, mucous membranes moist - Expanded ENT Exam External ear exam: Present: normal external inspection Mouth exam: Present: normal external inspection Teeth exam: Present: normal inspection Throat exam: Present: normal inspection - Neck Neck exam: Present: normal inspection, full ROM, trachea midline - Chest Chest inspection: Present: normal inspection, symmetric chest wall rise, rash (Nonspecific erythematous 1-2 mm macular lesions which have been present on and off since his lung removal per patient. Came back last night. Nonblanching non-petechial) - Respiratory Respiratory exam: Present: wheezes. Absent: respiratory distress - Cardiovascular Cardiovascular exam: Present: regular rate, normal rhythm, normal heart sounds - Abdominal Exam Abdominal exam: Present: soft, Non-Tender. Absent: tenderness, distention, guarding, rebound, rigidity - Extremities Exam Extremities exam: Present: normal inspection, full ROM. Absent: tenderness, pedal edema - Expanded Upper Extremity Exam Shoulder exam: Present: normal inspection, full ROM Arm exam: Present: normal inspection, full ROM Elbow exam: Present: normal inspection, full ROM Forearm/Wrist exam: Present: normal inspection, full ROM Hand exam: Present: normal inspection, full ROM Vascular exam: Normal: capillary refill, radial pulse - Expanded Lower Extremity Exam Hip/Pelvis exam: Present: normal inspection, full ROM Upper leg exam: Present: normal inspection, full ROM Knee exam: Present: normal inspection, full ROM Lower leg exam: Present: normal inspection, full ROM Ankle exam: Present: normal inspection, full ROM Foot/toe exam: Present: normal inspection, full ROM Neurovascular/Tendon exam: Absent: motor deficit, sensory deficit, tendon deficit - Back Exam Back exam: Present: normal inspection, full ROM. Absent: tenderness - Neurological Exam Neurological exam: Present: alert, oriented X3 - Expanded Neurological Exam Patient oriented to: Present: person, place, time Coma Scale Eye Opening: Spontaneous Coma Scale Motor Response: Obeys Commands Coma Scale Verbal Response: Oriented Coma Scale Total: 15 - Psychiatric Psychiatric exam: Present: normal affect, normal mood - Skin Skin exam: Present: warm, dry, intact, normal color Course Course Narrative: Patient are rate blood pressure respirations and oxygenation stable on admission. Results showed and discussed with the hospitalist. Due to his recent first time chemotherapy 1 week ago be admitted for further observation and care. Patient did have a diarrheal illness which may be the source of the fever. Cultures pending. Vital Signs Temperature 98.1 F 03/25/19 10:51 Pulse Rate 57 03/25/19 10:51 Respiratory Rate 16 03/25/19 10:51 Blood Pressure 110/75 03/25/19 10:51 O2 Sat by Pulse Oximetry 98 03/25/19 10:51 Temperature 98.1 F 03/25/19 15:42 Pulse Rate 93 03/25/19 14:48 Respiratory Rate 18 03/25/19 15:42 Blood Pressure 118/85 03/25/19 14:48 O2 Sat by Pulse Oximetry 94 03/25/19 14:48 Oxygen Delivery Oxygen Delivery Room Air Medical Decision Making - Lab Data Result diagrams: 03/25/19 13:11 03/25/19 11:06 Lab Results 03/25/19 03/25/19 03/25/19 Range/Units 11:06 11:06 11:06 WBC 1.6 L D (4.3-11.1) K/mcL RBC 5.51 H (4.19-5.50) M/mcL Hgb 16.8 D (12.9-16.9) g/dL Hct 47.9 (37.5-50.1) % MCV 86.9 (83.0-100.0) fL MCH 30.5 (28.0-33.3) pg MCHC 35.1 (31.6-35.5) g/dL RDW 12.4 (11.5-14.5) % Plt Count 109 L (140-400) K/mcL MPV 12.2 (9.4-12.4) fL Seg Neutrophils % % Band Neutrophils % (0-4) % Lymphocytes % % Neutrophils # (1.6-8.9) K/mcL Lymphocytes # (0.6-4.6) K/mcL Reactive Lymphocytes (Not Present) Platelet Estimate (Normal) Sodium 135 L (136-145) mEq/L Potassium 4.0 (3.5-5.1) mEq/L Chloride 97 L (98-107) mEq/L Carbon Dioxide 27 (23-29) mEq/L BUN 27 H (8-23) mg/dL Creatinine 0.85 (0.70-1.30) mg/dL Est GFR ( Amer) > 60 (> 60) Est GFR (Non-Af Amer) > 60 (> 60) BUN/Creatinine Ratio 32 H (6-26) Glucose 111 H (70-105) mg/dL Calculated Osmolality 286 (280-300) Calcium 9.1 (8.6-10.3) mg/dL Troponin I < 0.03 (< 0.04) ng/mL Procalcitonin 0.13 (0.00-0.15) ng/mL 03/25/19 Range/Units 13:11 WBC 1.4 L (4.3-11.1) K/mcL RBC 5.25 (4.19-5.50) M/mcL Hgb 16.1 (12.9-16.9) g/dL Hct 45.6 (37.5-50.1) % MCV 86.9 (83.0-100.0) fL MCH 30.7 (28.0-33.3) pg MCHC 35.3 (31.6-35.5) g/dL RDW 12.5 (11.5-14.5) % Plt Count 109 L (140-400) K/mcL MPV 12.4 (9.4-12.4) fL Seg Neutrophils % 34.0 % Band Neutrophils % 14.0 H (0-4) % Lymphocytes % 52.0 % Neutrophils # 0.7 L (1.6-8.9) K/mcL Lymphocytes # 0.7 (0.6-4.6) K/mcL Reactive Lymphocytes Present A (Not Present) Platelet Estimate Decreased L (Normal) Sodium (136-145) mEq/L Potassium (3.5-5.1) mEq/L Chloride (98-107) mEq/L Carbon Dioxide (23-29) mEq/L BUN (8-23) mg/dL Creatinine (0.70-1.30) mg/dL Est GFR ( Amer) (> 60) Est GFR (Non-Af Amer) (> 60) BUN/Creatinine Ratio (6-26) Glucose (70-105) mg/dL Calculated Osmolality (280-300) Calcium (8.6-10.3) mg/dL Troponin I (< 0.04) ng/mL Procalcitonin (0.00-0.15) ng/mL - EKG Data EKG #1 EKG attestation: Yes I reviewed and interpreted this EKG. EKG results narrative: Normal sinus rhythm. No acute injury pattern. Intervals unremarkable. EKG interpreted by myself ER attending physician without the benefit of the state auditor EKG shows normal: sinus rhythm Rate: normal
[2019-03-25 11:25] LABS: Hemoglobin 16.8 g/dL (12.9-16.9)
[2019-03-25 11:26] LABS: Hematocrit 47.9 % (37.5-50.1); Mean Corpuscular HGB Conc 35.1 g/dL (31.6-35.5); Mean Corpuscular Hemoglobin 30.5 pg (28.0-33.3); Mean Corpuscular Volume 86.9 fL (83.0-100.0); Mean Platelet Volume 12.2 fL (9.4-12.4); Platelet Count 109 K/mcL (140-400); Red Blood Count 5.51 M/mcL (4.19-5.50); Red Cell Distribution Width 12.4 % (11.5-14.5); White Blood Count 1.6 K/mcL (4.3-11.1)
[2019-03-25 11:46] LABS: BUN/Creatinine Ratio 32 (6-26); Blood Urea Nitrogen 27 mg/dL (8-23); Calcium 9.1 mg/dL (8.6-10.3); Carbon Dioxide 27 mEq/L (23-29); Chloride 97 mEq/L (98-107); Glucose 111 mg/dL (70-105); Osmolality,Calculated 286 (280-300); Sodium 135 mEq/L (136-145); Troponin I < 0.03 ng/mL (< 0.04); eGFR For African Americans > 60 (> 60); eGFR For Non-African Americans > 60 (> 60)
[2019-03-25] MEDS ORDERED: Ondansetron 4 MG/2 ML VIAL IVP ONE (13:02)
[2019-03-25] MEDS ORDERED: Piperacillin/Tazobactam 3.375 GM in 0.9 % Sodium Chloride Mini Bag 100 ML IVPB ONE (13:04)
[2019-03-25 13:52] LABS: Hematocrit 45.6 % (37.5-50.1); Hemoglobin 16.1 g/dL (12.9-16.9); Mean Corpuscular HGB Conc 35.3 g/dL (31.6-35.5); Mean Corpuscular Hemoglobin 30.7 pg (28.0-33.3); Mean Corpuscular Volume 86.9 fL (83.0-100.0); Mean Platelet Volume 12.4 fL (9.4-12.4); Platelet Count 109 K/mcL (140-400); Red Blood Count 5.25 M/mcL (4.19-5.50); Red Cell Distribution Width 12.5 % (11.5-14.5); White Blood Count 1.4 K/mcL (4.3-11.1)
[2019-03-25 14:42] LABS: Lymphocytes # 0.7 K/mcL (0.6-4.6); Neutrophils # 0.7 K/mcL (1.6-8.9)
[2019-03-25 14:43] LABS: Reactive Lymphocytes Present (Not Present)
[2019-03-25 14:52] LABS: Platelet Estimate Decreased (Normal)
[2019-03-25] MEDS ORDERED: Ondansetron 4 MG/2 ML VIAL IVP PRN (15:12)
[2019-03-25] MEDS ORDERED: Naloxone 0.4 MG/ML INJ IVP PRN (15:12)
[2019-03-25] MEDS ORDERED: Morphine Sulfate 2 MG/ML SYRINGE IVP PRN (15:18)
[2019-03-25] MEDS ORDERED: Isovue-370 500 ML BOTTLE IVP ONE (15:27)
[2019-03-25] MEDS ORDERED: Vancomycin (wt based) 1,000 MG VIAL IVPB SCH (16:00)
--- NOTE | 2019-03-25 16:01 | Internal Med History&Physical ---
Date of Encounter: 03/25/19 Time of Encounter: 15:00 Internal Medicine - H&P: HPI Admitted From: Emergency Dept Plans for Post Hospital Care: Home History of present illness: Mr. You is a 59 year old male with a past medical history significant for left-sided lung cancer status post partial pneumonectomy, chemotherapy on 03/19/2019, presented to the hospital because of generalized weakness. Patient mentions that he was feeling weak since yesterday, he had low energy, was not able to perform his normal activities. Patient also mentioned that he was having chills and rigors since yesterday. Patient got the chemotherapy on 03/19/2019. Patient was initially feeling fine after the chemotherapy but last night he was weak and lethargic. Patient does mention that he was also more short of breath, had cough and sputum production, phlegm was mucousy, it is not his baseline. Also mentioned that he was having diarrhea almost 3-4 episodes every day, watery, nonbloody, no association with food. Diarrhea was accompanied by crampy abdominal pain. Denies dysuria, hematuria, nocturia, increased frequency. Denies any increased tenderness or redness around the MediPort site, the patient mentions that he has been having consistent pain at the MediPort size since its insertion. Denies any ulcers on the body, does not the dose that he has noticed a generalized rash on the body, started in the morning today. According to the patient, that rash was not present previously. Patient mentioned that he feels that he is dehydrated, has not been drinking or eating much. In the emergency department, patient was hemodynamically stable. Laboratory workup showed neutropenia with WBC count of 1.4, platelet count of 109, increased bands percentage, sodium of 135, BUN of 27. Chest x-ray did show mild pulmonary vascular congestion. Patient was admitted for further management with concern for sepsis. Past Med Surg Social Fam HX - Past Medical History Medical history: arthritis, glaucoma, hepatitis, hypertension, myocardial infarction, RA, other Additional medical history: neck injurym varicose veins, lung ca, hep c Psychiatric history: anxiety - Past Surgical History Surgical History: orthopedic, other, other Additional surgical history: varicose veins, colonoscopy - Social History Smoking Status: Former smoker Smokeless Tobacco Status: No Alcohol use: none Drug use: none - Family History Mother Family Member Ethnicity: Non- Living Status: Hx Family Cardiac Disorders: Yes (aneurysm) Hx Family Neuromuscular Disorders: Yes (Parkinson's) Hx Family Neurologic Disorders: Yes (Alzheimers) Brother Family Member Ethnicity: Non- Living Status: Still Living Hx Family Cardiac Disorders: Yes (aneurysm) Internal Medicine - H&P: Meds Latanoprost [Xalatan] 1 drop BOTH EYES HS 02/13/19 [History] Multivit-Min/FA/Lycopen/Lutein [Centrum Silver Men Tablet] 1 tab PO DAILY 02/13/19 [History] Gabapentin [Neurontin] 300 mg PO TID 02/26/19 [History] Dexamethasone [Decadron] 2 tab PO BID #50 tab 02/28/19 [Rx] Omeprazole [PriLOSEC] 20 mg PO BIDAC #30 cap 02/28/19 [Rx] Ondansetron HCl [Zofran] 4 mg PO Q4H PRN #30 tablet 02/28/19 [Rx] Prochlorperazine Maleate [Compazine] 10 mg PO Q6H PRN #30 tablet 02/28/19 [Rx] Lidocaine/Prilocaine [Emla] 1 appl TP DAILY #30 gm 03/19/19 [Rx] Oxycodone HCl/Acetaminophen [Percocet 5-325 mg Tablet] 1 each PO Q6HR PRN 21 Days #84 tablet 03/19/19 [Rx] Clindamycin Phosphate [Cleocin T] 60 ml TP BID 03/25/19 [History] Allergy/AdvReac Type Severity Reaction Status Date / Time codeine AdvReac Itching Verified 03/25/19 10:53 All Systems PM: A 10-system review of systems was performed and is negative for pertinent findings except as documented above in the HPI. Review of systems: General: Negative for fever, chills, rigors. HEENT: Negative for swelling, discharge from nose, discharge from ears. EYES: Negative for any discharge from the eyes. Respiratory: See HPI Cardiovascular: Negative for chest pain, shortness of breath, orthopnea, PND. Gastrintestical: See HPI Genitourinary: Negative for dysuria, hematuria, nocturia, increased frequency of urine. Hematological: See HPI Neurological: Negative for headache, dizziness, blurry vision, loss os power and sensations. Endocrinology: Negative for constipation, polyuria, polydipsia. Psychiatric: Negative for anxiety or depression. - Constitutional Vitals: Temp Pulse Resp BP Pulse Ox 98.1 F 93 18 118/85 94 03/25/19 10:51 03/25/19 14:48 03/25/19 13:33 03/25/19 14:48 03/25/19 14:48 Exam: General: Alert and oriented, no physical distress, able to follow commands. HEENT: No thyromegaly, no lymphadenopathy, no discharge. Eyes: No discharge. Respiratory: Normal vesicular breathing, no added sounds, breathing equal in both sides. CVS: Normal heart sounds, no murmurs, no edema. Extremities: No peripheral edema, peripheral pulses intact. Lymph nodes: No lymphadenopathy Gastrointestinal: Soft, mildly tender abdomen, normal abdominal sounds. No distention noted. Genitourinary: No paravertebral tenderness. Neurological: Alert and oriented. No focal deficits. Cranial nerves II-XII intact. Skin: Maculopapular rash appreciated on the chest, abdomen and back. Internal Med - H&P Results - Labs CBC & Chem 7: 03/25/19 13:11 03/25/19 11:06 Labs: Short CBC 03/25/19 03/25/19 Range/Units 11:06 13:11 WBC 1.6 L D 1.4 L (4.3-11.1) K/mcL Hgb 16.8 D 16.1 (12.9-16.9) g/dL Hct 47.9 45.6 (37.5-50.1) % Plt Count 109 L 109 L (140-400) K/mcL Neutrophils # 0.7 L (1.6-8.9) K/mcL BMP 03/25/19 11:06 Sodium 135 L Potassium 4.0 Chloride 97 L Carbon Dioxide 27 BUN 27 H Creatinine 0.85 Glucose 111 H Calcium 9.1 Cardiac Enzymes 03/25/19 Range/Units 11:06 Troponin I < 0.03 (< 0.04) ng/mL - Impressions ITS Impressions Chest X-Ray 03/25/19 10:57 IMPRESSION: Mild pulmonary vascular congestion. Asymmetric elevation of the left hemidiaphragm, stable Atelectasis at the left lung base, stable. D/ / Bo De Anda MD / Bo De Anda MD Interpreting Provider: Bo De Anda MD - Assessment and Plan (1) Neutropenia with fever Current Visit: Yes Status: Acute Assessment and plan: Concerns for sepsis. Source is unclear We have ordered CT scan of the chest, CT scan of the abdomen to rule out any potential source of infection. Order UA Start the patient on IV vancomycin and Zosyn. ID consulted. Blood cultures obtained. -order lactic acid Recommendations for continuation or removal of MediPort. (2) Shortness of breath Current Visit: Yes Status: Acute Assessment and plan: Patient has chronic shortness of breath but mentions that he was more short of breath since yesterday. Patient also had cough and associated sputum production. CT scan of the chest is ordered to rule out any pneumonia. CT scan of the chest angiography to rule out pulmonary embolism. (3) Diarrheal stools Current Visit: Yes Status: Acute Assessment and plan: Could be related to chemotherapy. Chemotherapy associated colitis. Ordered c.diff lab Qualifiers: Diarrhea type: presumed infectious Qualified Code(s): R19.7 - Diarrhea, unspecified (4) Cancer of lower lobe of left lung Current Visit: No Status: Acute Assessment and plan: Status post partial pneumonectomy and chemotherapy in February Oncology on board. (5) DVT prophylaxis Current Visit: Yes Status: Acute Assessment and plan: Subcutaneous heparin. (6) Rash and nonspecific skin eruption Current Visit: Yes Status: Acute Assessment and plan: Maculopapular rash on the chest, back. No rash on the left. Could be related to the patient chemotherapy. We will observe the rash for now. In case, rash fails to resolve, further interventions. - Time Spent With Patient Total time spent is greater than 50% in coordination of care (as documented) at patient's floor/unit and/or counseling patient:
[2019-03-25] MEDS: 0.9 % Sodium Chloride 1,000 ML IVC SCH (17:30)
[2019-03-25] MEDS: *HR* Heparin 5,000 UNIT/ML VIAL SQ SCH (17:30)
[2019-03-25 21:52] LABS: Bilirubin,Urine Negative (Negative); Blood,Urine Negative (Negative); Clarity,Urine Clear (Clear); Color,Urine Dark Yellow (Yellow); Glucose,Urine (UA) 100 mg/dL (Normal); Ketones,Urine Negative (Negative); Leukocyte Esterase,Urine Negative (Negative); Nitrite,Urine Negative (Negative); Protein,Urine 30 mg/dL (Neg-Trace); Urobilinogen,Urine Normal (Normal)
[2019-03-25 21:54] LABS: Bacteria,Urine None Seen per hpf (None-Few); Hyaline Casts,Urine None Seen per lpf (None-Few); RBC,Urine 0-3 per hpf (0-3); Squamous Epithelial Cell,Urine Few per lpf (None-Few); WBC,Urine 0-3 per hpf (0-3)
[2019-03-25] MEDS: Piperacillin/Tazobactam 3.375 GM in 0.9 % Sodium Chloride Mini Bag 100 ML IVPB SCH (23:36)
[2019-03-26] MEDS: 0.9 % Sodium Chloride 1,000 ML IVC SCH (04:17)
[2019-03-26 04:43] LABS: Eosinophils % 1.4 %
[2019-03-26 04:50] LABS: Hematocrit 42.8 % (37.5-50.1); Hemoglobin 14.8 g/dL (12.9-16.9); Immature Granulocytes % 2.7 % (0-4); Immature Platelets 9.7 % (1.1-6.1); Lymphocytes # 0.5 K/mcL (0.6-4.6); Lymphocytes % 67.6 %; Mean Corpuscular HGB Conc 34.6 g/dL (31.6-35.5); Mean Corpuscular Volume 89.7 fL (83.0-100.0); Monocytes # 0.1 K/mcL (0.0-1.3); Monocytes % 10.8 %; Neutrophils # 0.1 K/mcL (1.6-8.9); Red Blood Count 4.77 M/mcL (4.19-5.50); Red Cell Distribution Width 12.4 % (11.5-14.5); Segmented Neutrophils % 17.5 %
[2019-03-26 05:03] LABS: Alanine Aminotransferase 50 Units/L (7-52); Albumin 3.1 g/dL (3.5-5.7); Albumin/Globulin Ratio 1.3 (1.1-2.2); Alkaline Phosphatase 58 Units/L (34-104); Aspartate Amino Transferase 30 Units/L (13-39); BUN/Creatinine Ratio 24 (6-26); Bilirubin,Total 1.9 mg/dL (0.3-1.0); Blood Urea Nitrogen 24 mg/dL (8-23); Calcium 8.5 mg/dL (8.6-10.3); Carbon Dioxide 27 mEq/L (23-29); Chloride 100 mEq/L (98-107); Globulin 2.4 g/dL (2.4-3.5); Glucose 113 mg/dL (70-105); Magnesium 1.7 mg/dL (1.6-2.6); Osmolality,Calculated 283 (280-300); Potassium 3.7 mEq/L (3.5-5.1); Sodium 134 mEq/L (136-145); Total Protein 5.5 g/dL (6.4-8.9); eGFR For African Americans > 60 (> 60); eGFR For Non-African Americans > 60 (> 60)
[2019-03-26 05:18] LABS: Platelet Count 82 K/mcL (140-400); White Blood Count 0.7 K/mcL (4.3-11.1)
[2019-03-26 05:19] LABS: Platelet Estimate Decreased (Normal)
[2019-03-26] MEDS: *HR* Heparin 5,000 UNIT/ML VIAL SQ SCH ×2 (06:01→18:56)
[2019-03-26] MEDS: Acetaminophen 325 MG TABLET PO PRN ×2 (07:30→19:48)
--- NOTE | 2019-03-26 08:05 | Electrocardiograph Report ---
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
[2019-03-26] MEDS ORDERED: Ringers Solution, Lactated 1,000 ML ONE (08:32)
[2019-03-26] MEDS: Piperacillin/Tazobactam 3.375 GM in 0.9 % Sodium Chloride Mini Bag 100 ML IVPB SCH ×2 (08:34→15:19)
[2019-03-26] MEDS: Ringers Solution, Lactated 1,000 ML IVC SCH ×2 (08:40→18:57)
--- NOTE | 2019-03-26 08:42 | Infectious Disease Consult ---
Infectious Disease-Consult - Encounter Date/Time Date of Encounter: 03/26/19 Time of Encounter: 10:27 - Data of Consult Patient: new to practice Reason for consult: "neutropenic fever" Consult date: 03/26/19 Requesting Physician: Kingsley Arenas Primary Care Provider: Richard Canas - [facility] HPI: Mr. You is a 59-year-old male with past medical history of glaucoma, hepatitis C, hypertension, GA, and squamous cell carcinoma status post cycle 1 of chemotherapy 03/19/19. The patient was admitted to the hospital 03/25/19 for neutropenic fever and diarrhea. We are consulted 03/26/19 for further workup and treatment recommendations for neutropenic fever. Briefly, the patient is a 59-year-old male with a past medical history as stated above. Patient presented to the emergency department with complaints of a 1 day history of fevers, chills, vomiting, diarrhea, cough, and fatigue. Upon arrival, he was afebrile and hemodynamically stable. Lab workup revealed a WBC of 1.6 with an ANC of 768. Lactic acid and renal function were normal. Troponin was negative. Procalcitonin was normal at 0.13. Urinalysis was negative for pyuria. He had a chest x-ray that showed mild pulmonary vascular congestion with an elevated left hemidiaphragm and atelectasis at the left lung base. He had a CT of the chest, abdomen, and pelvis with IV contrast that were negative for PE or acute abnormality in the abdomen or pelvis. There were changes consistent with his left lower lobectomy as well as new pulmonary and right adrenal metastatic disease. Blood cultures were obtained 2 sets from a peripheral stick. He was started empirically on IV antibiotics and admitted to the hospital for further evaluation. Since admission, the patient has remained afebrile and hemodynamically stable. He was tested for C. difficile which was negative. This morning, his ANC is down to 119. Oncology has been consulted and they are recommendations are pending. Currently, the patient on vancomycin and Zosyn. We have been asked to evaluate and make further recommendations. During my exam today, the patient endorses a history as stated above. He states he suddenly became ill on the day of admission with complaints of fatigue, malaise, subjective fevers and chills, left-sided chest pain that was reproducible, shortness of breath, cough, and diarrhea with abdominal pain. Denies any headache or neck pain. States he has recently had some nasal congestion with clear drainage. Denies earache or sore throat. States cough is productive of clear sputum. States he has COPD and is chronically short of breath, but his shortness of breath was worse over the past couple of days. Denies oral thrush. States he developed a rash to his trunk yesterday. He states he had a similar rash back when he underwent his lobectomy that cleared up with clindamycin cream. He states the rash was much worse yesterday and has improved somewhat today. He denies oral thrush. States his appetite has been poor but is a little bit better today. The patient lives at home with his . He does not work outside the home. He has a known history of hepatitis C and it is unclear if he has ever been treated. He recently quit smoking and was smoking about a pack and half cigarettes per day. Denies alcohol or illicit drug use. Denies recent travel. Has dogs at home, but denies any bites or scratches. Denies any known ill co ntacts. - ROS Review of Systems: All systems reviewed and no additional remarkable complaints except as stated. - Results CBC & Chem 7: 03/27/19 08:53 03/27/19 08:53 - Line Documentation Line Documentation: Aport (Left upper chest without erythema warmth, tenderness, or drainage.) - Exam Vitals: Temp Pulse Resp BP Pulse Ox 98.2 F 85 16 126/84 97 03/26/19 07:22 03/26/19 07:22 03/26/19 07:22 03/26/19 07:22 03/26/19 07:22 Exam: Head: Atraumatic, normal inspection, normocephalic. Eye: EOMI, PERRLA, no scleral icterus noted. ENT: Mucous membranes moist. No odontogenic infection noted. Neck: Normal inspection, no meningismus. Respiratory: Clear to auscultation. No rales, respiratory distress, rhonchi, or wheezes noted. Well-healed surgical scars noted to the left lateral and posterior lateral regions without erythema, warmth, tenderness, or drainage. Cardiovascular: Regular rate and rhythm, S1 and S2 audible. No murmurs, rubs, or gallops. GI: Soft, distended, normal bowel sounds. Generalized tenderness noted. Extremities:No joint swelling, pedal edema, or tenderness noted. Back: Normal inspection. No vertebral tenderness noted. No CVA tenderness noted. Neurological: Alert, oriented 3, no focal deficits. Psychiatric: normal affect, normal mood. Skin: Dry, intact, warm. Normal color. Follicular rash noted to the anterior posterior trunk. A-port noted to the left upper chest RANJIT with steri-strips intact. No erythema, warmth, tenderness, or drainage noted. Latanoprost [Xalatan] 1 drop BOTH EYES HS 02/13/19 [History] Multivit-Min/FA/Lycopen/Lutein [Centrum Silver Men Tablet] 1 tab PO DAILY 02/13/19 [History] Gabapentin [Neurontin] 300 mg PO TID 02/26/19 [History] Omeprazole [PriLOSEC] 20 mg PO BIDAC #30 cap 02/28/19 [Rx] Ondansetron HCl [Zofran] 4 mg PO Q4H PRN #30 tablet 02/28/19 [Rx] Prochlorperazine Maleate [Compazine] 10 mg PO Q6H PRN #30 tablet 02/28/19 [Rx] Lidocaine/Prilocaine [Emla] 1 appl TP DAILY #30 gm 03/19/19 [Rx] Clindamycin Phosphate [Cleocin T] 60 ml TP BID PRN 03/25/19 [History] Dexamethasone [Decadron] 8 mg PO BID 03/26/19 [History] Oxycodone HCl/Acetaminophen [Percocet 5-325 mg Tablet] 1 each PO Q4H PRN 03/26/19 [History] Allergy/AdvReac Type Severity Reaction Status Date / Time codeine AdvReac Itching Verified 03/26/19 08:45 - Assessment and Plan (1) Neutropenia with fever Current Visit: Yes Status: Acute WBC 0.7 this morning with ANC 119. Etiology: Infection vs. chemo. Onset for low blood counts for Taxotere is 4-7 days with Chidi 5-[address] chest, abdomen, and pelvis negative for acute infectious process. Procalcitonin 0.13. Blood cultures are pending. SNOMED Code(s): 766545964 (2) Diarrheal stools Current Visit: Yes Status: Acute Infectious vs. chemo-related. C. diff negative. CT abdomen and pelvis negative for colitis, but done without oral contrast. Consider repeat CT with PO contrast if patient fails to improve. Currently on Cefepime and Flagyl. Qualifiers: Diarrhea type: presumed infectious Qualified Code(s): R19.7 - Diarrhea, unspecified SNOMED Code(s): 61388413 (3) Shortness of breath Current Visit: Yes Status: Acute Patient reported shortness of breath with cough. CT chest negative for acute infectious process. Bronchitis vs. other. SNOMED Code(s): 579606362 (4) Rash and nonspecific skin eruption Current Visit: Yes Status: Acute Etiology: Unclear. Unsure if this could be related to the patient's chemo. Resembles folliculitis. Resolved previously with topical clindamycin cream. SNOMED Code(s): 913103287 (5) Cancer of lower lobe of left lung Current Visit: No Status: Acute Diagnosed January 2019. Status post robotic left lower lobectomy with lymph node dissection 02/13/[address] Encarnacion. Status post C1 taxotere/cisplatin 03/19/19. Follows with Dr. Morales at [facility]. Hem/Onc consultation pending. SNOMED Code(s): 284654747 (6) Hypertension Current Visit: No Status: Chronic Qualifiers: Hypertension type: essential hypertension Qualified Code(s): I10 - Essential (primary) hypertension SNOMED Code(s): 88454527 - Recommendations Recommendations: Await blood cultures to finalize. Check respiratory infectious panel. Await further recommendations from the Hem/Onc team. Continue Vancomycin IV. Pharmacy to dose. Goal trough ~15. Continue Zosyn 3.375 grams IV Q8H. Duration of treatment depends on the clinical picture. Monitor renal function and for drug toxicity and dose-adjust antibiotics. Neutropenic precautions per policy. Past Med Surg Social Fam HX - Past Medical History Attestation: Yes The following information was validated with the patient. Source: patient, old records reviewed, nursing notes reviewed Medical history: arthritis, glaucoma, hepatitis, hypertension, myocardial infarction, other Additional medical history: neck injurym varicose veins, lung ca, hep c Psychiatric history: anxiety - Past Surgical History Surgical History: orthopedic, other, other Additional surgical history: varicose veins, colonoscopy - Social History Smoking Status: Former smoker Smokeless Tobacco Status: No Alcohol use: none Drug use: none Occupational status: unemployed Current living situation: Home, With Family Activity Level: Independent ambulation Recent Out of Country Travel Within the Last 8 Weeks: No Exposure or Possible Exposure to Illness During Travel: No - Family History Mother Family Member Ethnicity: Non- Living Status: Hx Family Cardiac Disorders: Yes (aneurysm) Hx Family Neuromuscular Disorders: Yes (Parkinson's) Hx Family Neurologic Disorders: Yes (Alzheimers) Brother Family Member Ethnicity: Non- Living Status: Still Living Hx Family Cardiac Disorders: Yes (aneurysm) Consult Discharge Plan - Plan Referrals: Richard Canas MD [Primary Care Provider] - - Attending Attestation I have personally performed a face to face evaluation on this patient. I have reviewed and agree with the care plan. History and Exam by me shows: This is an addendum to original report dictated by Daysi Sorenson CNP. Agree with above history of present illness, review of system and physical exam fi ndings. Assessment and plan: Neutropenic fever source not clear Diarrhea improved Left long, cell carcinoma status post lobectomy and lymph node dissection 02/13/2019 by cardiothoracic surgery and status post first session of chemotherapy with Taxotere and cisplatin 03/19/2019 Alex tells me she had the rash after the procedure on 02/13/2019 that went away after 3 days and now the rash is back and it is not that her if anything gets worse. Patient denies any pruritus any pain. It is maculopapular. I did not appreciate any vesicles. This mostly on the trunk and it is sparing the upper and lower extremities. Recommendations Await blood cultures to finalize. Check respiratory infectious panel. Await further recommendations from the Hem/Onc team. Continue Vancomycin IV. Pharmacy to dose. Goal trough ~15. Continue Zosyn 3.375 grams IV Q8H. Duration of treatment depends on the clinical picture. Monitor renal function and for drug toxicity and dose-adjust antibiotics. Neutropenic precautions per policy.
--- NOTE | 2019-03-26 13:10 | Oncology Inp Consult Note ---
<Zeny Rosales - Last Filed: 03/26/19 15:16> Date of Encounter: 03/26/19 Time of Encounter: 13:15 Assessment and Plan (1) Cancer of lower lobe of left lung Status: Acute Assessment and plan: Grade 3 squamous cell carcinoma poorly differentiated with pleural based medially located nodule with close to the ascending aorta. Post robotic left lower lobectomy and mediastinal lymph node dissection 02/13/2019 Had 1 station 9 lymph node positive and rest of lymph nodes negative. pT1c, PN2,cM0 stage III a Brain MRI negative for metastatic disease on 03/04/19 Adjuvant chemotherapy Intent: Curative Number of cycles: 4 Cisplatin 75 mg/m IV day 1 Taxotere 60 mg/m IV day 1 (increase to 75 mg/m as tolerated) C1D1 03/19/19. (2) Neutropenia with fever Status: Acute Assessment and plan: ANC 100. s/p C1D1 Taxotere and Cisplatin on 03/19/19. Taxotere: judy 5-9 days with recovery in 21 days. Cisplatin: judy 18-23 days with recovery at 39 days. No documented fever noted in EMR. Patient states that he had feeling of being "sick", but did not take temperature at home. VS stable. Plan: Neupogen 480 mcg SQ x3 days. 1st dose 03/26/19 Continue Vancomycin and Zosyn per primary team. ID consulted. Recommendations appreciated. Blood cultures pending. Monitor VS closely. Patient will need Neulasta added to chemotherapy treatment plan for future cycles. - Data of Consult Patient: known to practice within the last 3 years Requesting Physician: Kingsley Arenas Primary Care Provider: Richard Canas - Consult Narrative Reason for consult: lung cancer History of present illness: Mr. You, a 59 yo male with NSCLC: squamous cell carcinoma, presented to the ED on 03/25/19 for fatigue, chills, diarrhea, shortness of breath, and cough x1 day. He states that he felt sick, like he had a fever, but did not take his temperature. He received Cisplatin (75 mg/m2) and Taxotere (60 mg/m2) on 03/19/19 as Cycle 1 day 1 of 21-day cycle. Today is C1D8. He also has a diffuse pink maculopapular rash to chest and abdomen. His notes that he has had the rash since surgery in February. Patient notes that the rash is better than it was yesterday. Oncology history: NSCLC squamous cell carcinoma Grade 3 squamous cell carcinoma poorly differentiated with pleural based medially located nodule with close to the ascending aorta. Post robotic left lower lobectomy and mediastinal lymph node dissection 02/13/2019 Had 1 station 9 lymph node positive and rest of lymph nodes negative. pT1c, PN2,cM0 stage III a Brain MRI negative for metastatic disease on 03/04/19 Adjuvant chemotherapy Intent: Curative Number of cycles: 4 Cisplatin 75 mg/m IV day 1 Taxotere 60 mg/m IV day 1 (increase to 75 mg/m as tolerated) C1D1 03/19/19 Discussed with patient and confirmed that he did not receive Neulasta with his treatment. Discussed role of Neupogen with patient. became very aggressive and using profanity during initial consult visit. She is yelling at the patient and requesting patient ask for transfer to [facility]. Patient attempting to calm her down and tell her about the Neupogen injections and continuing antibiotics. Discussed that vital signs have been stable and patient has not had a documented fever since admission. continues yelling and using profanity. Patient requesting time to discuss with and other family members in the room. Past Med Surg Social Fam HX - Past Medical History Medical history: arthritis, glaucoma, hepatitis, hypertension, myocardial in farction, other Additional medical history: neck injurym varicose veins, lung ca, hep c Psychiatric history: anxiety - Past Surgical History Surgical History: orthopedic, other, other Additional surgical history: varicose veins, colonoscopy - Social History Smoking Status: Former smoker Smokeless Tobacco Status: No Alcohol use: none Drug use: none - Family History Mother Family Member Ethnicity: Non- Living Status: Hx Family Cardiac Disorders: Yes (aneurysm) Hx Family Neuromuscular Disorders: Yes (Parkinson's) Hx Family Neurologic Disorders: Yes (Alzheimers) Brother Family Member Ethnicity: Non- Living Status: Still Living Hx Family Cardiac Disorders: Yes (aneurysm) Medications and Allergies Latanoprost [Xalatan] 1 drop BOTH EYES HS 02/13/19 [History] Multivit-Min/FA/Lycopen/Lutein [Centrum Silver Men Tablet] 1 tab PO DAILY 02/13/19 [History] Gabapentin [Neurontin] 300 mg PO TID 02/26/19 [History] Omeprazole [PriLOSEC] 20 mg PO BIDAC #30 cap 02/28/19 [Rx] Ondansetron HCl [Zofran] 4 mg PO Q4H PRN #30 tablet 02/28/19 [Rx] Prochlorperazine Maleate [Compazine] 10 mg PO Q6H PRN #30 tablet 02/28/19 [Rx] Lidocaine/Prilocaine [Emla] 1 appl TP DAILY #30 gm 03/19/19 [Rx] Clindamycin Phosphate [Cleocin T] 60 ml TP BID PRN 03/25/19 [History] Dexamethasone [Decadron] 8 mg PO BID 03/26/19 [History] Oxycodone HCl/Acetaminophen [Percocet 5-325 mg Tablet] 1 each PO Q4H PRN 03/26/19 [History] Allergy/AdvReac Type Severity Reaction Status Date / Time codeine AdvReac Itching Verified 03/26/19 08:45 Constitutional: Present: chills, fatigue, weakness Cardiovascular: Present: chest pain at rest, dyspnea, dyspnea on exertion Respiratory: Present: cough, dyspnea on exertion, pain on inspiration Gastrointestinal: Present: abdominal pain, diarrhea. Absent: constipation, hematemesis, hematochezia, melena, nausea, vomiting Musculoskeletal: Present: muscle weakness, myalgias Integumentary: Present: rash Oncology - Exam - Constitutional General appearance: cooperative, no acute distress, thin - Respiratory Respiratory exam: Absent: accessory muscle use, respiratory distress - Extremities Exam Extremities exam: Present: normal capillary refill, normal inspection - Neurological Exam Neurological exam: Present: alert, oriented X3. Absent: facial droop, speech deficit - Psychiatric Psychiatric exam: Present: normal affect, normal mood - Skin Skin exam: Present: rash Oncology Inpatient Results Labs: Laboratory Results - last 24 hr 03/25/19 03/25/19 03/25/19 14:00 16:40 21:40 WBC RBC Hgb Hct MCV MCH MCHC RDW Plt Count MPV Immature Gran % Seg Neutrophils % Lymphocytes % Monocytes % Eosinophils % Basophils % Neutrophils # Lymphocytes # Monocytes # Eosinophils # Basophils # Platelet Estimate Immature Plt Fraction Sodium Potassium Chloride Carbon Dioxide BUN Creatinine Est GFR ( Amer) Est GFR (Non-Af Amer) BUN/Creatinine Ratio Glucose Calculated Osmolality Lactic Acid 1.3 Calcium Magnesium Total Bilirubin AST ALT Alkaline Phosphatase Serum Total Protein Albumin Globulin Albumin/Globulin Ratio Urine Color Dark Yellow Urine Clarity Clear Urine pH 7.0 Ur Specific [place] 1.030 H Urine Protein 30 H Urine Glucose (UA) 100 H Urine Ketones Negative Urine Blood Negative Urine Nitrite Negative Urine Bilirubin Negative Urine Urobilinogen Normal Ur Leukocyte Esterase Negative Urine Microscopic RBC 0-3 Urine Microscopic WBC 0-3 Ur Squamous Epith Cells Few Urine Bacteria None Seen Hyaline Casts None Seen Ur Culture Indicated? NO Stl C. diff Tox B Gene Negative 03/26/19 03/26/19 04:21 04:21 WBC 0.7 L* RBC 4.77 Hgb 14.8 Hct 42.8 MCV 89.7 MCH 31.0 MCHC 34.6 RDW 12.4 Plt Count 82 L MPV 12.0 Immature Gran % 2.7 Seg Neutrophils % 17.5 Lymphocytes % 67.6 Monocytes % 10.8 Eosinophils % 1.4 Basophils % 0.0 Neutrophils # 0.1 L Lymphocytes # 0.5 L Monocytes # 0.1 Eosinophils # 0.0 Basophils # 0.0 Platelet Estimate Decreased L Immature Plt Fraction 9.7 H Sodium 134 L Potassium 3.7 Chloride 100 Carbon Dioxide 27 BUN 24 H Creatinine 0.99 Est GFR ( Amer) > 60 Est GFR (Non-Af Amer) > 60 BUN/Creatinine Ratio 24 Glucose 113 H Calculated Osmolality 283 Lactic Acid Calcium 8.5 L Magnesium 1.7 Total Bilirubin 1.9 H AST 30 ALT 50 Alkaline Phosphatase 58 Serum Total Protein 5.5 L Albumin 3.1 L Globulin 2.4 Albumin/Globulin Ratio 1.3 Urine Color Urine Clarity Urine pH Ur Specific [place] Urine Protein Urine Glucose (UA) Urine Ketones Urine Blood Urine Nitrite Urine Bilirubin Urine Urobilinogen Ur Leukocyte Esterase Urine Microscopic RBC Urine Microscopic WBC Ur Squamous Epith Cells Urine Bacteria Hyaline Casts Ur Culture Indicated? Stl C. diff Tox B Gene Consult Discharge Plan - Plan Referrals: Richard Canas MD [Primary Care Provider] - Inpatient Charges Provider: Dr. Kj Hooper <Derrick Hooper S - Last Filed: 03/27/19 08:16> Date of Encounter: 03/26/19 - Data of Consult Requesting Physician: Kingsley Arenas Primary Care Provider: Richard Canas Inpatient Charges Provider: Dr. G. Rufus Follow up - Inpatient: [id number] - Attending Attestation I examined this patient and my medical decision-making was reviewed with the Advanced Practice Nurse. I agree with the documented findings, disposition and treatment plan as described except to the extent set forth below. 1. Stage III A left lung grade 3 squamous cell carcinoma post robotic left lower lobectomy on 02/13/2019 2. Started adjuvant chemotherapy with the cisplatin 75 mg/m IV day 1 and Taxotere 60 mg/m IV day 1-3 weeks. Plan was to give 4 cycles. Cycle 1 on 03/19/2019. Hospitalized with a chemotherapy related toxicity including grade 2 fatigue. Low-grade fever up to 100 degrees Fahrenheit. Also neutropenia neutrophil count 100. Blood cultures from 03/25/[address] chest abdomen and pelvis 03/25/2019 showed new bilateral lung nodules up to 5 mm and right adrenal nodule 1 cm both new since January 2019. Discussed at thoracic tumor Board this is consistent with metastatic disease. We will proceed with PDL one testing next generation sequencing. Ms. switching to single agent immunotherapy-like Pembrolizumab with PDL one positive. If not would consider chemotherapy with immunotherapy. Because of chemotherapy related toxicity if he gets chemotherapy will dose reduce from cycle 2
--- NOTE | 2019-03-26 13:14 | Internal Med Progress Note ---
Hospitalist Progress Note - Encounter Date of Encounter: 03/26/19 Time of Encounter: 09:45 - Subjective Interval History: Seen at bedside. Feeling better than yesterday, Denies fever, chills. Deneis nausea, vomting, still has diarrhea though. Feels that his rash is improved since yesterday. Deneis any pain in the rash. Dneis dysuria, hematuria. No other overnight evetns. - Exam Vitals: Temp Pulse Resp BP Pulse Ox 98.2 F 76 14 115/80 97 03/26/19 12:00 03/26/19 12:00 03/26/19 12:00 03/26/19 12:00 03/26/19 12:00 Exam: General: Alert and oriented, no physical distress, able to follow commands. Respiratory: Normal vesicular breathing, no added sounds, breathing equal in both sides. CVS: Normal heart sounds, no murmurs, no edema. Extremities: No peripheral edema, peripheral pulses intact. Lymph nodes: No lymphadenopathy Gastrointestinal: Soft, mildly tender abdomen, normal abdominal sounds. No distention noted. Genitourinary: No paravertebral tenderness. Neurological: Alert and oriented. No focal deficits. Skin: Maculopapular rash appreciated on the chest, abdomen and back. - Assessment and Plan (1) Neutropenia with fever Current Visit: Yes Status: Acute Assessment and Plan: Further drop in the WBC count to 0.7. -Concerns for sepsis. Source is unclear CT scan of the chest and the abdomen failed to reveal any source of the sepsis. CT scan of the abdomen although showed right adrenal metastases. UA is negative for infection. Blood cultures have been negative so far. Awaiting the final report. [place] does not seem to be infected. Conune the patient on IV vancomycin and Zosyn. ID on board, appreciate recommendations regading the antibiotics. (2) Shortness of breath Current Visit: Yes Status: Acute Assessment and Plan: Patient has chronic shortness of breath but mentions that he was more short of breath before this admission. Saturations in the high 90s on room air. Currently seems like patient shortness of breath is close to his baseline. CT scan of the chest is negative for pulmonary embolism or pneumonia. No further intervention at this point. (3) Diarrheal stools Current Visit: Yes Status: Acute Assessment and Plan: Could be related to chemotherapy. Chemotherapy associated colitis. C. Diff negative -No intervetnions (4) Cancer of lower lobe of left lung Current Visit: No Status: Acute Assessment and Plan: Status post partial pneumonectomy and chemotherapy in February Oncology on board. (5) DVT prophylaxis Current Visit: Yes Status: Acute Assessment and Plan: Subcutaneous heparin. (6) Rash and nonspecific skin eruption Current Visit: Yes Status: Acute Assessment and Plan: Maculopapular rash on the chest, back. No rash on the legs. -Improved from yesterday, no pain Could be related to the patient chemotherapy. We will observe the rash for now. In case, rash fails to resolve, further interventions. - Time Spent with Patient Total time spent is greater than 50% in coordination of care (as documented) at patient's floor/unit and/or counseling patient: Internal Medicine: Result - Labs CBC & Chem 7: 03/26/19 04:21 03/26/19 04:21 Labs: Short CBC 03/25/19 03/26/19 Range/Units 13:11 04:21 WBC 1.4 L 0.7 L* (4.3-11.1) K/mcL Hgb 16.1 14.8 (12.9-16.9) g/dL Hct 45.6 42.8 (37.5-50.1) % Plt Count 109 L 82 L (140-400) K/mcL Neutrophils # 0.7 L 0.1 L (1.6-8.9) K/mcL BMP 03/26/19 04:21 Sodium 134 L Potassium 3.7 Chloride 100 Carbon Dioxide 27 BUN 24 H Creatinine 0.99 Glucose 113 H Calcium 8.5 L Liver Function 03/26/19 Range/Units 04:21 Total Bilirubin 1.9 H (0.3-1.0) mg/dL AST 30 (13-39) Units/L ALT 50 (7-52) Units/L Alkaline Phosphatase 58 (34-104) Units/L Albumin 3.1 L (3.5-5.7) g/dL Urine 03/25/19 Range/Units 21:40 Urine Color Dark Yellow (Yellow) Urine Clarity Clear (Clear) Urine pH 7.0 (5.0-8.0) pH Units Ur Specific [place] 1.030 H (1.010-1.025) Urine Protein 30 H (Neg-Trace) mg/dL Urine Glucose (UA) 100 H (Normal) mg/dL - Impressions Impressions Abdomen/Pelvis CT 03/25/19 15:27 IMPRESSION: 1. No evidence of pulmonary embolism 2. No acute process in the abdomen and pelvis 3. Status post left lower lobectomy 4. New pulmonary and right adrenal metastatic disease D/ / Pietro Madrid MD / Pietro Madrid MD Interpreting Provider: Pietro Madrid MD Chest CTA 03/25/19 15:27 IMPRESSION: 1. No evidence of pulmonary embolism 2. No acute process in the abdomen and pelvis 3. Status post left lower lobectomy 4. New pulmonary and right adrenal metastatic disease D/ / Pietro Madrid MD / Pietro Madrid MD Interpreting Provider: Pietro Madrid MD Consult Discharge Plan - Plan Referrals: Richard Canas MD [Primary Care Provider] - (3) Diarrheal stools Qualifiers: Qualified Code(s): R19.7 - Diarrhea, unspecified
[2019-03-26] MEDS: Gabapentin 300 MG CAPSULE PO SCH ×2 (15:18→22:26)
[2019-03-26] MEDS: Latanoprost 2.5 ML BOTTLE BOTH EYES SCH (22:26)
[2019-03-27] MEDS: Ringers Solution, Lactated 1,000 ML IVC SCH ×3 (00:33→13:00)
[2019-03-27] MEDS: Piperacillin/Tazobactam 3.375 GM in 0.9 % Sodium Chloride Mini Bag 100 ML IVPB SCH ×3 (00:33→15:30)
[2019-03-27 01:27] LABS: Adenovirus Not Detected (Not Detect); Bordetella Pertussis Not Detected (Not Detect); Chlamydophila pneumoniae Not Detected (Not Detect); Coronavirus 229E Not Detected (Not Detect); Coronavirus HKU1 Not Detected (Not Detect); Coronavirus NL63 Not Detected (Not Detect); Coronavirus OC43 Not Detected (Not Detect); Human Metapneumovirus Not Detected (Not Detect); Human Rhinovirus/Enterovirus Not Detected (Not Detect); Influenza A Subtype 2009 H1 Not Detected (Not Detect); Influenza A Untypeable Not Detected (Not Detect); Influenza B Not Detected (Not Detect); Mycoplasma pneumoniae Not Detected (Not Detect); Parainfluenza Virus 1 Not Detected (Not Detect); Parainfluenza Virus 2 Not Detected (Not Detect); Parainfluenza Virus 3 Not Detected (Not Detect); Parainfluenza Virus 4 Not Detected (Not Detect); Respiratory Syncytial Virus Not Detected (Not Detect)
[2019-03-27] MEDS: *HR* Heparin 5,000 UNIT/ML VIAL SQ SCH (05:33)
[2019-03-27] MEDS: Multivit/Ca/Min/Fe/FA 1 TAB TABLET PO SCH (08:07)
[2019-03-27] MEDS: Gabapentin 300 MG CAPSULE PO SCH ×3 (08:07→21:29)
[2019-03-27 09:26] LABS: Red Cell Distribution Width 12.5 % (11.5-14.5)
[2019-03-27 09:28] LABS: Hematocrit 37.8 % (37.5-50.1); Lymphocytes # 0.4 K/mcL (0.6-4.6); Mean Corpuscular HGB Conc 34.4 g/dL (31.6-35.5); Mean Corpuscular Hemoglobin 30.6 pg (28.0-33.3); Mean Corpuscular Volume 88.9 fL (83.0-100.0); Red Blood Count 4.25 M/mcL (4.19-5.50)
--- NOTE | 2019-03-27 09:39 | Infectious Disease Progress No ---
ID Progress Note Date of Encounter: 03/27/19 Time of Encounter: 09:36 - Subjective Subjective: Patient seen and examined. No acute events noted overnight. Patient states he feels a little bit better today. Denies fevers, chills, rigors. Denies headache or neck pain. Denies congestion, earache, or sore throat. States he still feels a little short of breath and has a moist nonproductive cough. Denies pain in his chest. Denies nausea, vomiting, or constipation. States he continues to have diarrhea, but it seems to be less frequent. Continues to report some generalized abdominal discomfort. Denies urinary complaints. States his appetite is a little bit better, but he did not eat breakfast because he did not like what they brought him. Denies oral thrush and states his rash is better. - Objective CBC & Chem 7: 03/28/19 04:24 03/28/19 04:24 - Line Documentation Line Documentation: Aport (Left upper chest without erythema warmth, tenderness, or drainage.) - Exam Vitals: Temp Pulse Resp BP Pulse Ox 98.3 F 91 14 137/90 97 03/27/19 06:43 03/27/19 06:43 03/27/19 06:43 03/27/19 06:43 03/27/19 06:43 Exam: Head: Atraumatic, normal inspection, normocephalic. Eye: EOMI, PERRLA, no scleral icterus noted. ENT: Mucous membranes moist. No odontogenic infection noted. No oral thrush lesions noted. Neck: Normal inspection, no meningismus. Respiratory: Clear to auscultation. No rales, respiratory distress, rhonchi, or wheezes noted. Well-healed surgical scars noted to the left lateral and posterior lateral regions without erythema, warmth, tenderness, or drainage. Cardiovascular: Regular rate and rhythm, S1 and S2 audible. No murmurs, rubs, or gallops. GI: Soft, distended, normal bowel sounds. Periumbilical tenderness noted. Extremities: No joint swelling, pedal edema, or tenderness noted. Neurological: Alert, oriented 3, no focal deficits. Psychiatric: normal affect, normal mood. Skin: Dry, intact, warm. Normal color. Follicular rash noted to the anterior posterior trunk, improved. A-port noted to the left upper chest RANJIT with steri-strips intact. No erythema, warmth, tenderness, or drainage noted. - Assessment and Plan (1) Neutropenia with fever Current Visit: Yes Status: Acute WBC 0.7 this morning with ANC 119. Etiology: Infection vs. chemo. AM labs pending. Tmax [address] chest, abdomen, and pelvis negative for acute infectious process. Procalcitonin 0.13. Blood cultures are NGTD x 2 sets. SNOMED Code(s): 982372023 (2) Diarrheal stools Current Visit: Yes Status: Acute Infectious vs. chemo-related. C. diff negative. CT abdomen and pelvis negative for colitis, but done without oral contrast. Consider repeat CT with PO contrast if patient fails to improve. Clinically improved. Currently on Zosyn. Qualifiers: Diarrhea type: presumed infectious Qualified Code(s): R19.7 - Diarrhea, unspecified SNOMED Code(s): 90494632 (3) Shortness of breath Current Visit: Yes Status: Acute Patient reported shortness of breath with cough. CT chest negative for acute infectious process. Bronchitis vs. other. RIP negative. Currently on Vanc and Zosyn. SNOMED Code(s): 572240844 (4) Rash and nonspecific skin eruption Current Visit: Yes Status: Acute Etiology: Unclear. Unsure if this could be related to the patient's chemo. Resembles folliculitis. Resolved previously with topical clindamycin cream. Improved. SNOMED Code(s): 061253306 (5) Cancer of lower lobe of left lung Current Visit: No Status: Acute Diagnosed January 2019. Status post robotic left lower lobectomy with lymph node dissection 02/13/[address] Encarnacion. Status post C1 taxotere/cisplatin 03/19/19. Follows with Dr. Morales at [facility]. Hem/Onc consulted and following. SNOMED Code(s): 853284007 (6) Hypertension Current Visit: No Status: Chronic Qualifiers: Hypertension type: essential hypertension Qualified Code(s): I10 - Essential (primary) hypertension SNOMED Code(s): 35480240 - Recommendations Recommendations: Await blood cultures to finalize. Await AM labs. Await further recommendations from the Hem/Onc team. Continue Vancomycin IV. Pharmacy to dose. Goal trough ~15. Continue Zosyn 3.375 grams IV Q8H. Duration of treatment depends on the clinical picture. Monitor renal function and for drug toxicity and dose-adjust antibiotics. Neutropenic precautions per policy. Consider derm to evaluate for rash. Consult Discharge Plan - Plan Referrals: Richard Canas MD [Primary Care Provider] - - Attending Attestation I have personally performed a face to face evaluation on this patient. I have reviewed and agree with the care plan. History and Exam by me shows: Assessment and plan: 1.Neutropenic fever source not clear 2.Diarrhea improved 3.Left lung, cell carcinoma status post lobectomy and lymph node dissection 02/13/2019 by cardiothoracic surgery and status post first session of chemotherapy with Taxotere and cisplatin 03/19/2019 4.Rashwife tells me she had the rash after the procedure on 02/13/2019 that went away after 3 days and now the rash is back and it is not that her if anything gets worse. Patient denies any pruritus any pain. It is maculopapul ar. I did not appreciate any vesicles. This mostly on the trunk and it is sparing the upper and lower extremities. Recommendations Await blood cultures to finalize. Await AM labs. Await further recommendations from the Hem/Onc team. Continue Vancomycin IV. Pharmacy to dose. Goal trough ~15. Continue Zosyn 3.375 grams IV Q8H. Duration of treatment depends on the clinical picture. Monitor renal function and for drug toxicity and dose-adjust antibiotics. Neutropenic precautions per policy. Consider derm to evaluate for rash.
[2019-03-27 09:41] LABS: Platelet Count 72 K/mcL (140-400)
[2019-03-27 09:45] LABS: BUN/Creatinine Ratio 17 (6-26); Blood Urea Nitrogen 13 mg/dL (8-23); Calcium 8.1 mg/dL (8.6-10.3); Carbon Dioxide 24 mEq/L (23-29); Chloride 102 mEq/L (98-107); Glucose 124 mg/dL (70-105); Osmolality,Calculated 278 (280-300); Potassium 3.3 mEq/L (3.5-5.1); Sodium 133 mEq/L (136-145); eGFR For African Americans > 60 (> 60); eGFR For Non-African Americans > 60 (> 60)
[2019-03-27 09:55] LABS: White Blood Count 0.6 K/mcL (4.3-11.1)
[2019-03-27 11:23] LABS: Monocytes # 0.2 K/mcL (0.0-1.3); Neutrophils # 0.1 K/mcL (1.6-8.9); Platelet Estimate Marked Decrease (Normal)
--- NOTE | 2019-03-27 15:26 | Internal Med Progress Note ---
Hospitalist Progress Note - Encounter Date of Encounter: 03/27/19 Time of Encounter: 10:30 - Subjective Interval History: Seen at bedside. Feeling better than yesterday, Denies fever, chills. Deneis nausea, vomting, still has diarrhea though. Feels that his rash is improved since yesterday. Deneis any pain in the rash. Dneis dysuria, hematuria. No other overnight evetns. - Exam Vitals: Temp Pulse Resp BP Pulse Ox 98.0 F 82 14 139/87 96 03/27/19 11:15 03/27/19 11:15 03/27/19 11:15 03/27/19 11:15 03/27/19 11:15 Exam: General: Alert and oriented, no physical distress, able to follow commands. Oral cavity; oral thrush can be appecaited Respiratory: Normal vesicular breathing, no added sounds, breathing equal in both sides. CVS: Normal heart sounds, no murmurs, no edema. Extremities: No peripheral edema, peripheral pulses intact. Lymph nodes: No lymphadenopathy Gastrointestinal: Soft, mildly tender abdomen, normal abdominal sounds. No distention noted. Genitourinary: No paravertebral tenderness. Neurological: Alert and oriented. No focal deficits. Skin: Maculopapular rash appreciated on the chest, abdomen and back.[place] - Assessment and Plan (1) Neutropenia with fever Current Visit: Yes Status: Acute Assessment and Plan: Further drop in the WBC count to 0.6. -Concerns for sepsis. Source is unclear CT scan of the chest and the abdomen failed to reveal any source of the sepsis. CT scan of the abdomen although showed right adrenal metastases. UA is negative for infection. Blood cultures have been negative so far. Awaiting the final report. MediPort does not seem to be infected. Conune the patient on IV vancomycin and Zosyn. ID on board, appreciate recommendations regading the antibiotics. (2) Shortness of breath Current Visit: Yes Status: Acute Assessment and Plan: Patient has chronic shortness of breath but mentions that he was more short of breath before this admission. Saturations in the high 90s on room air. Currently seems like patient shortness of breath is close to his baseline. CT scan of the chest is negative for pulmonary embolism or pneumonia. No further intervention at this point. (3) Diarrheal stools Current Visit: Yes Status: Acute Assessment and Plan: Could be related to chemotherapy. Chemotherapy associated colitis. C. Diff negative -Order loepramide (4) Cancer of lower lobe of left lung Current Visit: No Status: Acute Assessment and Plan: Status post partial pneumonectomy and chemotherapy in February Oncology on board. (5) DVT prophylaxis Current Visit: Yes Status: Acute Assessment and Plan: Subcutaneous heparin. (6) Rash and nonspecific skin eruption Current Visit: Yes Status: Acute Assessment and Plan: Maculopapular rash on the chest, back. No rash on the legs. -Improved from yesterday, no pain Could be related to the patient chemotherapy. We will observe the rash for now. In case, rash fails to resolve, further interventions. (7) Oral thrush Current Visit: Yes Status: Acute Assessment and Plan: -Likley related to chemotherapy -Patient has been eating food, low suspicion of esophaeal esophagitis -Order topical clotrimzole - Time Spent with Patient Total time spent is greater than 50% in coordination of care (as documented) at patient's floor/unit and/or counseling patient: Internal Medicine: Result - Labs CBC & Chem 7: 03/27/19 08:53 03/27/19 08:53 Labs: Short CBC 03/27/19 Range/Units 08:53 WBC 0.6 L* (4.3-11.1) K/mcL Hgb 13.0 D (12.9-16.9) g/dL Hct 37.8 (37.5-50.1) % Plt Count 72 L (140-400) K/mcL Neutrophils # 0.1 L (1.6-8.9) K/mcL BMP 03/27/19 08:53 Sodium 133 L Potassium 3.3 L Chloride 102 Carbon Dioxide 24 BUN 13 Creatinine 0.78 Glucose 124 H Calcium 8.1 L Consult Discharge Plan - Plan Referrals: Richard Canas MD [Primary Care Provider] - (3) Diarrheal stools Qualifiers: Diarrhea type: presumed infectious Qualified Code(s): R19.7 - Diarrhea, unspecified
--- NOTE | 2019-03-27 19:20 | Event Note ---
Date of Encounter: 03/27/19 Time of Encounter: 18:00 Patient and requesting transfer to [facility] for oncology treatment and management of neutropenia. Hospitalist notified and will try to transfer in the morning.
--- NOTE | 2019-03-27 19:30 | Oncology Inp Progress Note ---
Date of Encounter: 03/27/19 Time of Encounter: 19:28 (1) Neutropenia with fever Current Visit: Yes Status: Acute Assessment and plan: Admitted with neutropenia. Current neutrophil count 100 .Also thrombocytopenia. Fatigue. Low-grade fever. MAXIMUM TEMPERATURE 100.1 the last 24 hours. Blood cultures pending from admission He is currently on IV vancomycin and Zosyn. 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 Post robotic left lower lobectomy and mediastinal lymph node dissection 02/13/2019 Had 1 station 9 lymph node positive and rest of lymph nodes negative. pT1c, PN2,cM0 stage III a Brain MRI negative for metastatic disease on 03/04/19 He had 1 dose of adjuvant chemotherapy on 03/19/2019 Cisplatin 75 mg/m IV day 1 Taxotere 60 mg/m IV day 1 CT angiogram chest and CT abdomen and pelvis with IV contrast 03/25/2019 showed new subcentimeter lung nodules bilateral compared to January 2019. Also new right adrenal nodule 1 cm. This was reviewed at thoracic tumor Board 03/27/2019 and this is consistent with metastasis We will proceed with next generation sequencing and PDL one testing was upset and want transfer to [facility] and we will initiate that in the morning Oncology: Subj Interval history: Continue to be neutropenic neutrophil count around 100. Thrombocytopenia platelet count 72,000. Fatigue has improved marginally. Mild sore throat and diarrhea. C. difficile negative 03/25/2019 - Constitutional Exam: More alert and oriented. No mucositis Abdomen soft Has erythematous papular rash in the chest and abdominal wall. Lower extremities no edema Lungs: Clear bilaterally with good air entry Heart S1-S2 regular rate and rhythm Oncology: Obj Data - Labs CBC & Chem 7: 03/27/19 08:53 03/27/19 08:53 Consult Discharge Plan - Plan Referrals: Richard Canas MD [Primary Care Provider] - Inpatient Charges Provider: Dr. Kj Hooper Follow up - Inpatient: [id number]
[2019-03-27] MEDS: Latanoprost 2.5 ML BOTTLE BOTH EYES SCH (21:29)
[2019-03-27] MEDS: Acetaminophen 325 MG TABLET PO PRN (21:37)
[2019-03-28] MEDS: Piperacillin/Tazobactam 3.375 GM in 0.9 % Sodium Chloride Mini Bag 100 ML IVPB SCH ×3 (00:17→16:05)
[2019-03-28 05:09] LABS: Hemoglobin 13.3 g/dL (12.9-16.9); Mean Platelet Volume 12.4 fL (9.4-12.4)
[2019-03-28 05:10] LABS: Basophils % 0.6 %; Eosinophils % 0.6 %; Hematocrit 39.2 % (37.5-50.1); Lymphocytes # 0.6 K/mcL (0.6-4.6); Lymphocytes % 38.7 %; Mean Corpuscular HGB Conc 33.9 g/dL (31.6-35.5); Mean Corpuscular Hemoglobin 30.7 pg (28.0-33.3); Mean Corpuscular Volume 90.5 fL (83.0-100.0); Monocytes # 0.3 K/mcL (0.0-1.3); Monocytes % 19.6 %; Neutrophils # 0.7 K/mcL (1.6-8.9); Red Blood Count 4.33 M/mcL (4.19-5.50); Red Cell Distribution Width 12.4 % (11.5-14.5); Segmented Neutrophils % 40.5 %; White Blood Count 1.6 K/mcL (4.3-11.1)
[2019-03-28 05:23] LABS: Platelet Count 78 K/mcL (140-400)
[2019-03-28 05:30] LABS: BUN/Creatinine Ratio 17 (6-26); Blood Urea Nitrogen 14 mg/dL (8-23); Calcium 8.5 mg/dL (8.6-10.3); Carbon Dioxide 27 mEq/L (23-29); Chloride 100 mEq/L (98-107); Glucose 133 mg/dL (70-105); Osmolality,Calculated 298 (280-300); Potassium 3.2 mEq/L (3.5-5.1); Sodium 143 mEq/L (136-145); eGFR For African Americans > 60 (> 60); eGFR For Non-African Americans > 60 (> 60)
[2019-03-28 06:29] LABS: Platelet Estimate Decreased (Normal)
[2019-03-28] MEDS: Acetaminophen 325 MG TABLET PO PRN (08:04)
[2019-03-28] MEDS: Multivit/Ca/Min/Fe/FA 1 TAB TABLET PO SCH (08:04)
[2019-03-28] MEDS: Gabapentin 300 MG CAPSULE PO SCH ×3 (08:04→21:44)
--- NOTE | 2019-03-28 09:21 | Discharge Summary ---
Orders not resulted at time of discharge: Pending orders 03/25/19 11:25 Culture,Blood [BC] Stat Date of Encounter: 03/28/19 Time of Encounter: 09:21 - Discharge Diagnosis (1) Cancer of lower lobe of left lung Status: Acute (2) Neutropenia with fever Status: Acute (3) Diarrheal stools Status: Acute Qualifiers: Diarrhea type: presumed infectious Qualified Code(s): R19.7 - Diarrhea, unspecified (4) Shortness of breath Status: Acute (5) DVT prophylaxis Status: Acute (6) Rash and nonspecific skin eruption Status: Acute (7) Oral thrush Status: Acute Hospital course: Mr. You is a 59 year old male - Time Spent with Patient Total time spent providing and/or coordinating discharge services: - Discharge Medications Prescriptions: No Action Latanoprost [Xalatan] 1 drop BOTH EYES HS Multivit-Min/FA/Lycopen/Lutein [Centrum Silver Men Tablet] 1 tab PO DAILY Gabapentin [Neurontin] 300 mg PO TID Prochlorperazine Maleate [Compazine] 10 mg PO Q6H PRN #30 tablet PRN Reason: Nausea Omeprazole [PriLOSEC] 20 mg PO BIDAC #30 cap Ondansetron HCl [Zofran] 4 mg PO Q4H PRN #30 tablet PRN Reason: Nausea Lidocaine/Prilocaine [Emla] 1 appl TP DAILY #30 gm Clindamycin Phosphate [Cleocin T] 60 ml TP BID PRN PRN Reason: Rash Dexamethasone [Decadron] 8 mg PO BID Oxycodone HCl/Acetaminophen [Percocet 5-325 mg Tablet] 1 each PO Q4H PRN PRN Reason: Pain Home Medications: Latanoprost [Xalatan] 1 drop BOTH EYES HS 02/13/19 [History] Multivit-Min/FA/Lycopen/Lutein [Centrum Silver Men Tablet] 1 tab PO DAILY 02/13/19 [History] Gabapentin [Neurontin] 300 mg PO TID 02/26/19 [History] Omeprazole [PriLOSEC] 20 mg PO BIDAC #30 cap 02/28/19 [Rx] Ondansetron HCl [Zofran] 4 mg PO Q4H PRN #30 tablet 02/28/19 [Rx] Prochlorperazine Maleate [Compazine] 10 mg PO Q6H PRN #30 tablet 02/28/19 [Rx] Lidocaine/Prilocaine [Emla] 1 appl TP DAILY #30 gm 03/19/19 [Rx] Clindamycin Phosphate [Cleocin T] 60 ml TP BID PRN 03/25/19 [History] Dexamethasone [Decadron] 8 mg PO BID 03/26/19 [History] Oxycodone HCl/Acetaminophen [Percocet 5-325 mg Tablet] 1 each PO Q4H PRN 03/26/19 [History] Allergies/Adverse Reactions: Allergy/AdvReac Type Severity Reaction Status Date / Time codeine AdvReac Itching Verified 03/26/19 08:45 Date of admission: 03/25/19 14:27 Primary care physician: Richard Canas Consults: 03/25/19 15:21 Consult to Infectious Diseases [CONS] Routine Consulting Provider: Infectious Disease Carolyne Reason for Consult: Neutropenic fever Call Completed: Yes Consult to Oncology Hematology [CONS] Routine Consulting Provider: Derrick Hooper Reason for Consult: Neuropenic fever Call Completed: No Discharging clinician: Maritza Stapleton - Constitutional Vitals: Temp Pulse Resp BP Pulse Ox 99.1 F 78 12 138/91 95 03/28/19 06:57 03/28/19 06:57 03/28/19 06:57 03/28/19 06:57 03/28/19 06:57 - Patient Status Condition: Serious - Discharge Instructions Follow Up With: Richard Canas MD [Primary Care Provider] -
--- NOTE | 2019-03-28 10:22 | Infectious Disease Progress No ---
ID Progress Note Date of Encounter: 03/28/19 Time of Encounter: 09:15 - Subjective Subjective: Patient seen and examined. No acute events noted overnight. Patient states he feels better today. Denies fevers, chills, rigors. Denies headache or neck pain. Denies congestion, earache, or sore throat. States he still feels a little short of breath and has a moist nonproductive cough, which is at baseline. Denies pain in his chest. Denies nausea, vomiting, or constipation. States he has not had any diarrhea since yesterday. Denies abdominal pain. Denies urinary complaints. States his appetite is good. Denies oral thrush and states his rash is better. - Objective CBC & Chem 7: 03/28/19 04:24 03/28/19 04:24 - Line Documentation Line Documentation: Aport (Left upper chest without erythema warmth, tenderness, or drainage.) - Exam Vitals: Temp Pulse Resp BP Pulse Ox 98.1 F 88 18 130/95 95 03/28/19 09:47 03/28/19 09:47 03/28/19 09:47 03/28/19 09:47 03/28/19 06:57 Exam: Head: Atraumatic, normal inspection, normocephalic. Eye: EOMI, PERRLA, no scleral icterus noted. ENT: Mucous membranes moist. No odontogenic infection noted. No oral thrush lesions noted. Neck: Normal inspection, no meningismus. Respiratory: Clear to auscultation. No rales, respiratory distress, rhonchi, or wheezes noted. Well-healed surgical scars noted to the left lateral and posterior lateral regions without erythema, warmth, tenderness, or drainage. Cardiovascular: Regular rate and rhythm, S1 and S2 audible. No murmurs, rubs, or gallops. GI: Soft, distended, normal bowel sounds. Non-tender. Extremities: No joint swelling, pedal edema, or tenderness noted. Neurological: Alert, oriented 3, no focal deficits. Psychiatric: normal affect, normal mood. Skin: Dry, intact, warm. Normal color. Follicular rash noted to the anterior posterior trunk, improved. A-port noted to the left upper chest CREAM DUMPER with steri-strips intact. No erythema, warmth, tenderness, or drainage noted. - Assessment and Plan (1) Neutropenia with fever Current Visit: Yes Status: Acute WBC 1.6 with ANC 640. Etiology: Infection vs. chemo. Onset for low blood counts for Taxotere is 4-7 days with Chidi 5-[address] chest, abdomen, and pelvis negative for acute infectious process. Procalcitonin 0.13. Blood cultures are NGTD x 2 sets. Afebrile overnight. Neupogen per Hem/Onc. SNOMED Code(s): 816004712 (2) Diarrheal stools Current Visit: Yes Status: Acute Infectious vs. chemo-related. C. diff negative. CT abdomen and pelvis negative for colitis, but done without oral contrast. Clinically improved. Currently on Zosyn. Qualifiers: Diarrhea type: presumed infectious Qualified Code(s): R19.7 - Diarrhea, unspecified SNOMED Code(s): 67198526 (3) Shortness of breath Current Visit: Yes Status: Acute Patient reported shortness of breath with cough. CT chest negative for acute infectious process. Bronchitis vs. other. RIP negative. Improved per patient and back to baseline. Currently on Vanc and Zosyn. SNOMED Code(s): 753569969 (4) Rash and nonspecific skin eruption Current Visit: Yes Status: Acute Etiology: Unclear. Unsure if this could be related to the patient's chemo. Resembles folliculitis. Resolved previously with topical clindamycin cream. Improved. SNOMED Code(s): 440047804 (5) Cancer of lower lobe of left lung Current Visit: No Status: Acute Diagnosed January 2019. Status post robotic left lower lobectomy with lymph node dissection 02/13/[address] Encarnacion. Status post C1 taxotere/cisplatin 03/19/19. Follows with Dr. Morales at [facility]. Hem/Onc consulted and following. SNOMED Code(s): 137329974 (6) Hypertension Current Visit: No Status: Chronic Qualifiers: Hypertension type: essential hypertension Qualified Code(s): I10 - Essential (primary) hypertension SNOMED Code(s): 54051825 - Recommendations Recommendations: Await blood cultures to finalize. Await further recommendations from the Hem/Onc team. Patient requesting transfer to [facility] for second opinion. Continue Vancomycin IV. Pharmacy to dose. Goal trough ~15. Continue Zosyn 3.375 grams IV Q8H. Duration of treatment depends on the clinical picture. Monitor renal function and for drug toxicity and dose-adjust antibiotics. Neutropenic precautions per policy. Consider derm to evaluate for rash. Consult Discharge Plan - Plan Referrals: Richard Canas MD [Primary Care Provider] -
[2019-03-28] MEDS ORDERED: Aminoglycoside Consult 1 EACH MC ONE (12:04)
--- NOTE | 2019-03-28 14:05 | Internal Med Progress Note ---
Hospitalist Progress Note - Encounter Date of Encounter: 03/28/19 Time of Encounter: 09:03 - Subjective Interval History: Patient seen and examined this morning at bedside. No acute overnight events. Upset this morning and wanted to be transferred to [facility]. Denies new complains. Denies any chest pain or difficulty breathing. Denies any diarrhea. Denies any abdominal pain. Still has the rash on his abdominal. Mentioned he had this before which resolved with a cream. Afebrile and hemodynamically stable. - Exam Vitals: Temp Pulse Resp BP Pulse Ox 97.6 F 82 14 146/99 97 03/28/19 11:40 03/28/19 11:40 03/28/19 11:40 03/28/19 11:40 03/28/19 11:40 Exam: General: In no acute distress. upset and irritated Respiratory exam: CTAB. no accessory muscle use, rales, rhonchi, wheezes Cardiovascular exam: RRR, +S1, +S2. no murmur, gallop, rubs. GI/Abdominal exam: Non-tender, Non-distended, normal bowel sounds, soft, no peritoneal signs. Extremities exam: no pedal edema, pulses palpable in b/l lower extremities. no calf tenderness Neurological exam: CN II-XII intact, AO X3, no focal deficits. Skin exam: maculopapular rash on abdomen and anterior chest, non blanching, non pruritic. - Assessment and Plan (1) Cancer of lower lobe of left lung Current Visit: No Status: Acute (2) Neutropenia with fever Current Visit: Yes Status: Acute (3) Diarrheal stools Current Visit: Yes Status: Acute (4) Shortness of breath Current Visit: Yes Status: Acute (5) DVT prophylaxis Current Visit: Yes Status: Acute (6) Rash and nonspecific skin eruption Current Visit: Yes Status: Acute (7) Oral thrush Current Visit: Yes Status: Acute - Summary of Assessment and Plan Summary of Assessment and Plan: Assessment Acute Neutropenia with fever likely relate to chemotherap shortness of breath Diarrhoea Oral thrush 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 htn glaucoma Plan - Neuropenia related to chemotherapy with low grade fevers. Started on neupogen. Improved WBC today. No clear infectious source. procalcitonin normal. Diarrhea resolved. Drug rash vs gastroenteritis. RIP, Cdiff, UA and CT chest unremarkable for source. c/w empiric abx for now. ID following. f/u Blood culture - Dermatology consulted for drug rash. Possible folliculitis. appreciate recommendations. - s/p LLL lobectomy and mediastinal LN dissection. Brain MRI negative for mets but CT abdomen showed right adrenal metastases. Started on adjuvant chemo on 03/19/19. 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 Patient will have out of pocket payments and decided to stat. Oncology following. recommendation appreciated. - sc heparin for DVT ppx Internal Medicine: Result - Labs CBC & Chem 7: 03/28/19 04:24 03/28/19 04:24 Labs: Short CBC 03/28/19 Range/Units 04:24 WBC 1.6 L D (4.3-11.1) K/mcL Hgb 13.3 (12.9-16.9) g/dL Hct 39.2 (37.5-50.1) % Plt Count 78 L (140-400) K/mcL Neutrophils # 0.7 L (1.6-8.9) K/mcL BMP 03/28/19 04:24 Sodium 143 D Potassium 3.2 L Chloride 100 Carbon Dioxide 27 BUN 14 Creatinine 0.81 Glucose 133 H Calcium 8.5 L Consult Discharge Plan - Plan Referrals: Richard Canas MD [Primary Care Provider] - (3) Diarrheal stools Qualifiers: Diarrhea type: presumed infectious Qualified Code(s): R19.7 - Diarrhea, unspecified
--- NOTE | 2019-03-28 17:59 | Oncology Inp Progress Note ---
<Zeny Rosales Rocco - Last Filed: 03/28/19 17:56> Date of Encounter: 03/28/19 Time of Encounter: 16:00 (1) Cancer of lower lobe of left lung Current Visit: No Status: Acute Assessment and plan: Grade 3 squamous cell carcinoma poorly differentiated with pleural based medially located nodule with close to the ascending aorta. Post robotic left lower lobectomy and mediastinal lymph node dissection 02/13/2019 Had 1 station 9 lymph node positive and rest of lymph nodes negative. pT1c, PN2,cM0 stage III a Brain MRI negative for metastatic disease on 03/04/19 Adjuvant chemotherapy Intent: Curative Number of cycles: 4 Cisplatin 75 mg/m IV day 1 Taxotere 60 mg/m IV day 1 (increase to 75 mg/m as tolerated) C1D1 03/19/19. (2) Neutropenia with fever Current Visit: Yes Status: Acute Assessment and plan: ANC 100. s/p C1D1 Taxotere and Cisplatin on 03/19/19. Taxotere: judy 5-9 days with recovery in 21 days. Cisplatin: judy 18-23 days with recovery at 39 days. No documented fever noted in EMR. Patient states that he had feeling of being "sick", but did not take temperature at home. VS stable. Plan: Neupogen 480 mcg SQ. 2 more doses ordered for 03/29/19 and 03/30/19. 1st dose 03/26/19 Continue Vancomycin and Zosyn per primary team. ID consulted. Recommendations appreciated. Blood cultures no growth to date. Monitor VS closely. . Oncology: Subj Interval history: David is awake and feeling better this afternoon. ANC 700. Discussed addition of two more days of Neupogenj 480 mcg SQ on Sunday and Sunday. and verbalize apology for their reaction and behavior over the past two days. VS remain stable. BC no growth to date. Oncology: Obj Data - Labs CBC & Chem 7: 03/28/19 04:24 03/28/19 04:24 Consult Discharge Plan - Plan Referrals: Richard Canas MD [Primary Care Provider] - <Justino Marrero - Last Filed: 03/28/19 18:02> Date of Encounter: 03/28/19 Oncology: Obj Data - Labs CBC & Chem 7: 03/28/19 04:24 03/28/19 04:24 Inpatient Charges Provider: Dr. Kathryn Marrero Follow up - Inpatient: [id number] - Attending Attestation I examined this patient and my medical decision-making was reviewed with the Advanced Practice Nurse. I agree with the documented findings, disposition and treatment plan as described except to the extent set forth below. Patient with h/o stage III Squamous cell carcinoma of the lung now with progression of disease PDL-1 testing and NGS sent off Currently on neupogen 480 mcg SQ daily. Please continue until ANC > 1000
[2019-03-28] MEDS: Latanoprost 2.5 ML BOTTLE BOTH EYES SCH (21:45)
[2019-03-29] MEDS: Piperacillin/Tazobactam 3.375 GM in 0.9 % Sodium Chloride Mini Bag 100 ML IVPB SCH ×2 (00:14→08:56)
[2019-03-29 07:55] LABS: Basophils # 0.1 K/mcL (0.0-0.2); Basophils % 0.9 %; Eosinophils % 0.2 %; Hematocrit 39.5 % (37.5-50.1); Hemoglobin 13.5 g/dL (12.9-16.9); Immature Granulocytes % 7.4 % (0-4); Lymphocytes # 1.1 K/mcL (0.6-4.6); Lymphocytes % 17.2 %; Mean Corpuscular HGB Conc 34.2 g/dL (31.6-35.5); Mean Corpuscular Hemoglobin 30.3 pg (28.0-33.3); Mean Corpuscular Volume 88.8 fL (83.0-100.0); Mean Platelet Volume 12.1 fL (9.4-12.4); Monocytes # 0.6 K/mcL (0.0-1.3); Monocytes % 9.3 %; Neutrophils # 4.3 K/mcL (1.6-8.9); Platelet Count 103 K/mcL (140-400); Red Blood Count 4.45 M/mcL (4.19-5.50); Red Cell Distribution Width 12.6 % (11.5-14.5)
[2019-03-29 08:02] LABS: White Blood Count 6.6 K/mcL (4.3-11.1)
[2019-03-29 08:10] LABS: BUN/Creatinine Ratio 15 (6-26); Blood Urea Nitrogen 12 mg/dL (8-23); Calcium 8.4 mg/dL (8.6-10.3); Carbon Dioxide 26 mEq/L (23-29); Chloride 98 mEq/L (98-107); Glucose 104 mg/dL (70-105); Osmolality,Calculated 280 (280-300); Potassium 3.5 mEq/L (3.5-5.1); Sodium 135 mEq/L (136-145); eGFR For African Americans > 60 (> 60); eGFR For Non-African Americans > 60 (> 60)
[2019-03-29 08:19] LABS: Platelet Estimate Slight Decrease (Normal)
[2019-03-29] MEDS: Multivit/Ca/Min/Fe/FA 1 TAB TABLET PO SCH (08:54)
[2019-03-29] MEDS: Gabapentin 300 MG CAPSULE PO SCH ×3 (08:54→21:38)
[2019-03-29] MEDS: Acetaminophen 325 MG TABLET PO PRN (09:02)
--- NOTE | 2019-03-29 09:31 | Internal Med Progress Note ---
Hospitalist Progress Note - Encounter Date of Encounter: 03/29/19 Time of Encounter: 09:31 - Subjective Interval History: Patient seen and examined this morning at beside. Feeling much better and she knows that his white count improved. Denies any chest pain difficulty breathing nausea vomiting or diarrhea. Complains of some rash in his axilla. No s ignificant change in rash on his abdomen and back. Afebrile and hemodynamically stable. - Exam Vitals: Temp Pulse Resp BP Pulse Ox 98.3 F 81 12 121/89 97 03/29/19 08:13 03/29/19 08:13 03/29/19 08:13 03/29/19 08:13 03/29/19 08:13 Exam: General: In no acute distress. upset and irritated Respiratory exam: CTAB. no accessory muscle use, rales, rhonchi, wheezes Cardiovascular exam: RRR, +S1, +S2. no murmur, gallop, rubs. GI/Abdominal exam: Non-tender, Non-distended, normal bowel sounds, soft, no peritoneal signs. Extremities exam: no pedal edema, pulses palpable in b/l lower extremities. no calf tenderness Neurological exam: CN II-XII intact, AO X3, no focal deficits. Skin exam: maculopapular rash on abdomen and anterior chest, non blanching, non pruritic. - Assessment and Plan (1) Cancer of lower lobe of left lung Current Visit: No Status: Acute (2) Neutropenia with fever Current Visit: Yes Status: Acute (3) Diarrheal stools Current Visit: Yes Status: Acute (4) Shortness of breath Current Visit: Yes Status: Acute (5) DVT prophylaxis Current Visit: Yes Status: Acute (6) Rash and nonspecific skin eruption Current Visit: Yes Status: Acute (7) Oral thrush Current Visit: Yes Status: Acute - Summary of Assessment and Plan Summary of Assessment and Plan: Assessment Acute Neutropenia with fever likely relate to chemotherapy shortness of breath- resolved. 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 htn glaucoma Plan - Neuropenia related to chemotherapy with low grade fevers. Started on neupogen. Improved WBC. No clear infectious source. procalcitonin normal. Diarrhea resolved. Drug rash vs gastroenteritis. RIP, Cdiff, UA and CT chest unremarkable for source. Will change abx to levaquin per discuss with ID. Await final blood cultures. If negative will discharge on 10 days of antibiotics. Will apply clotrimazole cream for intergrigo. - neupogen per hemonc. May be able to stop given improved wbc - Dermatology consulted. Spoke with Kimberley. Will need outpatient follow up early next week for biopsy. will arranged outpatient appointment on sunday. - s/p LLL lobectomy and mediastinal LN dissection. Brain MRI negative for mets but CT abdomen showed right adrenal metastases. Started on adjuvant chemo on 03/19/19. Oncology following. recommendation appreciated. PDL-1 tesing and NGS sent off. - sc heparin for DVT ppx - Discussed about discharge tomorrow on levaquin if remain afebrile and wbc stable to f/u dermatolog clinic early next week and onc follow up. Internal Medicine: Result - Labs CBC & Chem 7: 03/29/19 07:10 03/29/19 07:10 Labs: Short CBC 03/29/19 Range/Units 07:10 WBC 6.6 D (4.3-11.1) K/mcL Hgb 13.5 (12.9-16.9) g/dL Hct 39.5 (37.5-50.1) % Plt Count 103 L (140-400) K/mcL Neutrophils # 4.3 (1.6-8.9) K/mcL BMP 03/29/19 07:10 Sodium 135 L Potassium 3.5 Chloride 98 Carbon Dioxide 26 BUN 12 Creatinine 0.80 Glucose 104 Calcium 8.4 L Consult Discharge Plan - Plan Referrals: Richard Canas MD [Primary Care Provider] - (3) Diarrheal stools Qualifiers: Diarrhea type: presumed infectious Qualified Code(s): R19.7 - Diarrhea, unspecified
[2019-03-29] MEDS: levoFLOXacin 750 MG/150 ML 750 MG/150 ML BAG IVPB SCH (11:45)
[2019-03-29] MEDS: Clotrimazole 1% CRM 15 GM TUBE TP SCH ×2 (14:26→21:38)
[2019-03-29] MEDS: Latanoprost 2.5 ML BOTTLE BOTH EYES SCH (21:38)
[2019-03-30 06:59] VITALS: BP 130/91
[2019-03-30] MEDS: levoFLOXacin 750 MG/150 ML 750 MG/150 ML BAG IVPB SCH (07:57)
[2019-03-30] MEDS: Clotrimazole 1% CRM 15 GM TUBE TP SCH (07:57)
[2019-03-30] MEDS: Multivit/Ca/Min/Fe/FA 1 TAB TABLET PO SCH (07:58)
[2019-03-30] MEDS: Gabapentin 300 MG CAPSULE PO SCH (07:58)
[2019-03-30 09:05] LABS: Hematocrit 41.5 % (37.5-50.1); Lymphocytes # 0.7 K/mcL (0.6-4.6); Mean Corpuscular HGB Conc 33.7 g/dL (31.6-35.5); Mean Corpuscular Volume 88.9 fL (83.0-100.0); Mean Platelet Volume 11.8 fL (9.4-12.4); Platelet Count 117 K/mcL (140-400); Red Blood Count 4.67 M/mcL (4.19-5.50); Red Cell Distribution Width 12.9 % (11.5-14.5); White Blood Count 6.7 K/mcL (4.3-11.1)
[2019-03-30 09:36] LABS: Dohle Bodies Present (Not Present); Monocytes # 0.3 K/mcL (0.0-1.3); Neutrophils # 5.8 K/mcL (1.6-8.9); Platelet Estimate Slight Decrease (Normal); Toxic Granulation Present (Not Present)
--- NOTE | 2019-03-30 10:20 | Discharge Summary ---
- NOTES TO OUTPATIENT PROVIDER Notes to Outpatient Provider: Follow-up with dermatology and oncology. Patient needs a skin biopsy for his abdominal skin rash. Finish 8 days of Levaquin Orders not resulted at time of discharge: Pending orders 03/25/19 11:25 Culture,Blood [BC] Stat Date of Encounter: 03/30/19 Time of Encounter: 10:00 - Discharge Diagnosis (1) Neutropenia with fever Priority: Primary Status: Resolved (2) Rash and nonspecific skin eruption Priority: Secondary Status: Acute (3) Cancer of lower lobe of left lung Priority: Secondary Status: Chronic (4) Diarrheal stools Priority: Secondary Status: Resolved Qualifiers: Diarrhea type: presumed infectious Qualified Code(s): R19.7 - Diarrhea, unspecified (5) Shortness of breath Priority: Secondary Status: Resolved (6) DVT prophylaxis Priority: Secondary Status: Acute (7) Oral thrush Priority: Secondary Status: Resolved Hospital course: Mr. You is a 59 year old male with Hx of lung cancer LLL lobectomy and mediastinal LN dissection with adrenal mets, chemotherapy on 03/19/2019, presented to the hospital because of generalized weakness and diarrhea. Patient was managed for neutropenic fever. Infectious disease service was consulted and patient infectious workup including CT chest, abdomen and pelvis were negative, Procalcitonin was normal, blood cultures were negative. Patient was initially started on Zosyn and patient remained afebrile throughout hospitalization. His Zosyn was switched to Levaquin as per discussion. Infectious disease. Patient was also followed by oncology service and he received neupogen infusion with normalization of his neutropenia. Patient developed skin rash at presentation mainly on his abdomen and back. This was recurrent and he benefited in the past from clindamycin cream. Dermatology service was consulted and patient will follow with dermatology service at discharge for a skin biopsy. Today, patient is hemodynamically stable. Asymptomatic, afebrile. He will be discharged home in stable condition Discharge discussed with: patient - Time Spent with Patient Total time spent providing and/or coordinating discharge services: 40 minutes - Discharge Medications Prescriptions: New Clotrimazole [Mycelex Allison] 10 mg MM TID #2 allison Continued Latanoprost [Xalatan] 1 drop BOTH EYES HS Multivit-Min/FA/Lycopen/Lutein [Centrum Silver Men Tablet] 1 tab PO DAILY Gabapentin [Neurontin] 300 mg PO TID Prochlorperazine Maleate [Compazine] 10 mg PO Q6H PRN #30 tablet PRN Reason: Nausea Omeprazole [PriLOSEC] 20 mg PO BIDAC #30 cap Ondansetron HCl [Zofran] 4 mg PO Q4H PRN #30 tablet PRN Reason: Nausea Lidocaine/Prilocaine [Emla] 1 appl TP DAILY #30 gm Clindamycin Phosphate [Cleocin T] 60 ml TP BID PRN PRN Reason: Rash Dexamethasone [Decadron] 8 mg PO BID Oxycodone HCl/Acetaminophen [Percocet 5-325 mg Tablet] 1 each PO Q4H PRN PRN Reason: Pain Home Medications: Latanoprost [Xalatan] 1 drop BOTH EYES HS 02/13/19 [History] Multivit-Min/FA/Lycopen/Lutein [Centrum Silver Men Tablet] 1 tab PO DAILY 02/13/19 [History] Gabapentin [Neurontin] 300 mg PO TID 02/26/19 [History] Omeprazole [PriLOSEC] 20 mg PO BIDAC #30 cap 02/28/19 [Rx] Ondansetron HCl [Zofran] 4 mg PO Q4H PRN #30 tablet 02/28/19 [Rx] Prochlorperazine Maleate [Compazine] 10 mg PO Q6H PRN #30 tablet 02/28/19 [Rx] Lidocaine/Prilocaine [Emla] 1 appl TP DAILY #30 gm 03/19/19 [Rx] Clindamycin Phosphate [Cleocin T] 60 ml TP BID PRN 03/25/19 [History] Dexamethasone [Decadron] 8 mg PO BID 03/26/19 [History] Oxycodone HCl/Acetaminophen [Percocet 5-325 mg Tablet] 1 each PO Q4H PRN 03/26/19 [History] Clotrimazole [Mycelex Allison] 10 mg MM TID #2 allison 03/30/19 [Rx] Allergies/Adverse Reactions: Allergy/AdvReac Type Severity Reaction Status Date / Time codeine AdvReac Itching Verified 03/26/19 08:45 Date of admission: 03/25/19 14:27 Primary care physician: Richard Canas Consults: 03/25/19 15:21 Consult to Infectious Diseases [CONS] Routine Consulting Provider: Infectious Disease [place] Reason for Consult: Neutropenic fever Call Completed: Yes Consult to Oncology Hematology [CONS] Routine Consulting Provider: Derrick Hooper Reason for Consult: Neuropenic fever Call Completed: No 03/28/19 10:53 Consult to Dermatology [CONS] Routine Consulting Provider: Dermatology [place] Reason for Consult: maculopapular rash on abdomen Call Completed: Yes - Constitutional Vitals: Temp Pulse Resp BP Pulse Ox 98.4 F 84 12 130/91 93 03/30/19 06:54 03/30/19 06:54 03/30/19 06:54 03/30/19 06:54 03/30/19 06:54 Exam: General: Patient is alert, oriented 3. Head: Atraumatic, normal inspection, normocephalic. Eye: EOMI, PERRLA, no scleral icterus noted. ENT: Mucous membranes moist. No odontogenic infection noted. Neck: Normal inspection,. Respiratory: No respiratory distress, rhonchi, or wheezes noted. Cardiovascular: Regular rate and regular rhythm, S1 and S2 audible. No murmurs, rubs, or gallops. GI: Soft, nondistended, normal bowel sounds. Extremities:No joint swelling, pedal edema, or tenderness noted. Neurological: Alert, oriented 3, no focal deficits. Psychiatric: normal affect, normal mood. Skin: Widespread papular rash over the abdomen and the back. No discharge, erythema or warmth noted. - Patient Status Disposition: Home, Self-Care Condition: Good Functional capacity at discharge: independent ambulation Overall status at discharge: patient is back to baseline - Discharge Instructions Follow Up With: Richard Canas MD [Primary Care Provider] - - Diet and Activity Activity: resume usual activities as tolerated Diet: low salt diet
== END 2019-03-30 12:05 | disposition home or self-care (01) ==
LOC: 2NENU 10:50 → EMEROOARM 10:50 → SUATTDRO 14:27 → 2NENU 15:30 → SUATTDRO 16:40
PROVIDERS: ADMIT Internal Medicine; ATTEND Internal Medicine

== ENCOUNTER 2019-06-15 12:00 | Inpatient (IN) ==
[2019-06-15] MEDS ORDERED: 0.9 % Sodium Chloride 1,000 ML IVC ONE (12:11)
[2019-06-15] MEDS ORDERED: *HR* Promethazine 25 MG/ML VIAL IVP ONE (12:44)
[2019-06-15] MEDS ORDERED: *HR* HYDROmorphone 2 MG/ML SYRINGE IVP STA (12:44)
[2019-06-15 12:48] LABS: Basophils # 0.1 K/mcL (0.0-0.2); Basophils % 1.7 %; Hematocrit 30.3 % (37.5-50.1); Hemoglobin 9.6 g/dL (12.9-16.9); Immature Granulocytes % 13.8 % (0-4); Lymphocytes # 0.4 K/mcL (0.6-4.6); Lymphocytes % 10.1 %; Mean Corpuscular HGB Conc 31.7 g/dL (31.6-35.5); Mean Corpuscular Hemoglobin 30.5 pg (28.0-33.3); Mean Corpuscular Volume 96.2 fL (83.0-100.0); Mean Platelet Volume 10.3 fL (9.4-12.4); Monocytes % 0.8 %; Neutrophils # 2.7 K/mcL (1.6-8.9); Platelet Count 264 K/mcL (140-400); Red Blood Count 3.15 M/mcL (4.19-5.50); Red Cell Distribution Width 15.7 % (11.5-14.5); Segmented Neutrophils % 73.6 %; White Blood Count 3.6 K/mcL (4.3-11.1)
[2019-06-15 12:55] LABS: INR 1.2
[2019-06-15 12:58] LABS: Activated Partial Thrombo Time 32.2 Seconds (26.0-36.0)
[2019-06-15 13:08] LABS: Alanine Aminotransferase 30 Units/L (7-52); Albumin 2.9 g/dL (3.5-5.7); Albumin/Globulin Ratio 0.9 (1.1-2.2); Alkaline Phosphatase 81 Units/L (34-104); Aspartate Amino Transferase 43 Units/L (13-39); BUN/Creatinine Ratio 19 (6-26); Bilirubin,Direct 0.2 mg/dL (0.0-0.2); Bilirubin,Indirect 0.6 mg/dL (0.0-1.2); Bilirubin,Total 0.8 mg/dL (0.3-1.0); Blood Urea Nitrogen 13 mg/dL (8-23); Calcium 8.3 mg/dL (8.6-10.3); Carbon Dioxide 29 mEq/L (23-29); Chloride 99 mEq/L (98-107); Globulin 3.2 g/dL (2.4-3.5); Glucose 114 mg/dL (70-105); Osmolality,Calculated 281 (280-300); Phosphorous 2.9 mg/dL (2.7-4.5); Potassium 3.7 mEq/L (3.5-5.1); Sodium 135 mEq/L (136-145); Total Protein 6.1 g/dL (6.4-8.9); Troponin I < 0.03 ng/mL (< 0.04); eGFR For African Americans > 60 (> 60); eGFR For Non-African Americans > 60 (> 60)
[2019-06-15 13:21] LABS: Anisocytosis 2+ (Not Present); Platelet Estimate Slight Decrease (Normal)
[2019-06-15 13:22] LABS: Macrocytosis Present (Not Present); Microcytosis Present (Not Present); Stomatocytes 1+ (Not Present)
[2019-06-15 13:23] LABS: Poikilocytosis 1+ (Not Present)
[2019-06-15] MEDS ORDERED: levoFLOXacin 750 MG/150 ML 750 MG/150 ML BAG IVPB ONE (13:35)
[2019-06-15] MEDS ORDERED: Piperacillin/Tazobactam 3.375 GM in 0.9 % Sodium Chloride Mini Bag 100 ML IVPB ONE (13:35)
[2019-06-15] MEDS ORDERED: Ibuprofen 600 MG TABLET PO ONE (13:36)
[2019-06-15] MEDS ORDERED: Ondansetron 4 MG/2 ML VIAL IVP PRN (14:53)
[2019-06-15] MEDS ORDERED: Acetaminophen 325 MG TABLET PO PRN (14:53)
[2019-06-15] MEDS ORDERED: Naloxone 0.4 MG/ML INJ IVP PRN (14:53)
[2019-06-15 15:27] LABS: Bilirubin,Urine Negative (Negative); Blood,Urine Negative (Negative); Clarity,Urine Clear (Clear); Color,Urine Yellow (Yellow); Glucose,Urine (UA) Normal (Normal); Ketones,Urine Negative (Negative); Leukocyte Esterase,Urine Negative (Negative); Nitrite,Urine Negative (Negative); Protein,Urine 30 mg/dL (Neg-Trace); Specific Gravity,Urine 1.019 (1.010-1.025); Urobilinogen,Urine Normal (Normal)
[2019-06-15 15:29] LABS: Bacteria,Urine None Seen per hpf (None-Few); Hyaline Casts,Urine None Seen per lpf (None-Few); Squamous Epithelial Cell,Urine Many per lpf (None-Few); WBC,Urine 0-3 per hpf (0-3)
[2019-06-15] MEDS: *HR* OxyCODONE/APAP 5/325 TABLET PO PRN ×2 (16:17→21:13)
[2019-06-15] MEDS: Morphine Sulfate ER (12 HR) 15 MG TABLET.ER PO SCH (18:02)
[2019-06-15 19:06] LABS: Adenovirus Not Detected (Not Detect); Bordetella Pertussis Not Detected (Not Detect); Chlamydophila pneumoniae Not Detected (Not Detect); Coronavirus 229E Not Detected (Not Detect); Coronavirus HKU1 Not Detected (Not Detect); Coronavirus NL63 Not Detected (Not Detect); Coronavirus OC43 Not Detected (Not Detect); Human Metapneumovirus Not Detected (Not Detect); Human Rhinovirus/Enterovirus Not Detected (Not Detect); Influenza A Subtype 2009 H1 Not Detected (Not Detect); Influenza A Untypeable Not Detected (Not Detect); Influenza B Not Detected (Not Detect); Mycoplasma pneumoniae Not Detected (Not Detect); Parainfluenza Virus 1 Not Detected (Not Detect); Parainfluenza Virus 2 Not Detected (Not Detect); Parainfluenza Virus 3 Not Detected (Not Detect); Parainfluenza Virus 4 Not Detected (Not Detect); Respiratory Syncytial Virus Not Detected (Not Detect)
[2019-06-15] MEDS: Mirtazapine 15 MG TABLET PO SCH (21:13)
[2019-06-15] MEDS: Latanoprost 2.5 ML BOTTLE BOTH EYES SCH (22:27)
[2019-06-16 04:37] LABS: Mean Platelet Volume 10.8 fL (9.4-12.4); Red Cell Distribution Width 15.8 % (11.5-14.5)
[2019-06-16 04:38] LABS: Hematocrit 26.9 % (37.5-50.1); Hemoglobin 8.6 g/dL (12.9-16.9); Mean Corpuscular Hemoglobin 31.4 pg (28.0-33.3); Mean Corpuscular Volume 98.2 fL (83.0-100.0); Platelet Count 196 K/mcL (140-400); Red Blood Count 2.74 M/mcL (4.19-5.50); White Blood Count 1.3 K/mcL (4.3-11.1)
[2019-06-16 04:57] LABS: BUN/Creatinine Ratio 20 (6-26); Blood Urea Nitrogen 12 mg/dL (8-23); Calcium 8.1 mg/dL (8.6-10.3); Carbon Dioxide 30 mEq/L (23-29); Chloride 100 mEq/L (98-107); Glucose 132 mg/dL (70-105); Magnesium 1.7 mg/dL (1.6-2.6); Osmolality,Calculated 276 (280-300); Potassium 3.6 mEq/L (3.5-5.1); Sodium 132 mEq/L (136-145); eGFR For African Americans > 60 (> 60); eGFR For Non-African Americans > 60 (> 60)
[2019-06-16] MEDS: Morphine Sulfate ER (12 HR) 15 MG TABLET.ER PO SCH ×2 (06:10→17:54)
[2019-06-16] MEDS: *HR* Enoxaparin 40 MG/0.4 ML SYRINGE SQ SCH (06:10)
[2019-06-16] MEDS: Metoprolol XL (24 HR) Succ 25 MG TAB.ER.24H PO SCH (08:00)
[2019-06-16] MEDS: *HR* Amiodarone 200 MG TABLET PO SCH (08:01)
[2019-06-16] MEDS: levoFLOXacin 750 MG TABLET PO SCH (13:29)
[2019-06-16] MEDS: *HR* OxyCODONE/APAP 5/325 TABLET PO PRN (13:29)
[2019-06-16] MEDS: Mirtazapine 15 MG TABLET PO SCH (20:05)
[2019-06-16] MEDS: Latanoprost 2.5 ML BOTTLE BOTH EYES SCH (20:09)
[2019-06-17 03:50] LABS: Red Cell Distribution Width 15.1 % (11.5-14.5)
[2019-06-17 03:52] LABS: Hematocrit 25.5 % (37.5-50.1); Hemoglobin 8.2 g/dL (12.9-16.9); Immature Platelets 4.6 % (1.1-6.1); Lymphocytes # 0.3 K/mcL (0.6-4.6); Mean Corpuscular HGB Conc 32.2 g/dL (31.6-35.5); Mean Corpuscular Hemoglobin 31.4 pg (28.0-33.3); Mean Corpuscular Volume 97.7 fL (83.0-100.0); Mean Platelet Volume 10.7 fL (9.4-12.4); Platelet Count 185 K/mcL (140-400); Red Blood Count 2.61 M/mcL (4.19-5.50)
[2019-06-17 04:05] LABS: BUN/Creatinine Ratio 22 (6-26); Blood Urea Nitrogen 13 mg/dL (8-23); Calcium 8.4 mg/dL (8.6-10.3); Carbon Dioxide 29 mEq/L (23-29); Chloride 97 mEq/L (98-107); Glucose 107 mg/dL (70-105); Osmolality,Calculated 279 (280-300); Potassium 3.8 mEq/L (3.5-5.1); Sodium 134 mEq/L (136-145); eGFR For African Americans > 60 (> 60); eGFR For Non-African Americans > 60 (> 60)
[2019-06-17 04:15] LABS: White Blood Count 0.5 K/mcL (4.3-11.1)
[2019-06-17] MEDS: Morphine Sulfate ER (12 HR) 15 MG TABLET.ER PO SCH ×2 (05:27→17:03)
[2019-06-17] MEDS: *HR* Enoxaparin 40 MG/0.4 ML SYRINGE SQ SCH (05:27)
[2019-06-17 05:28] LABS: Monocytes # 0.1 K/mcL (0.0-1.3); Neutrophils # 0.2 K/mcL (1.6-8.9); Toxic Vacuolation Present (Not Present)
[2019-06-17 05:29] LABS: Platelet Estimate Slight Decrease (Normal)
[2019-06-17] MEDS: Metoprolol XL (24 HR) Succ 25 MG TAB.ER.24H PO SCH (09:28)
[2019-06-17] MEDS: *HR* Amiodarone 200 MG TABLET PO SCH (09:29)
[2019-06-17] MEDS: levoFLOXacin 750 MG TABLET PO SCH (12:24)
[2019-06-17] MEDS: Piperacillin/Tazobactam 3.375 GM in 0.9 % Sodium Chloride Mini Bag 100 ML IVPB SCH ×2 (16:54→23:00)
[2019-06-17] MEDS: Mirtazapine 15 MG TABLET PO SCH (20:57)
[2019-06-17] MEDS: Magic Mouthwash 10 ML UD Cup PO SCH (20:57)
[2019-06-17] MEDS: Latanoprost 2.5 ML BOTTLE BOTH EYES SCH (20:57)
[2019-06-18] MEDS: *HR* Enoxaparin 40 MG/0.4 ML SYRINGE SQ SCH (05:12)
[2019-06-18] MEDS: Morphine Sulfate ER (12 HR) 15 MG TABLET.ER PO SCH ×2 (05:13→17:25)
[2019-06-18 05:44] LABS: Hemoglobin 7.5 g/dL (12.9-16.9)
[2019-06-18 05:45] LABS: Mean Corpuscular HGB Conc 32.6 g/dL (31.6-35.5); Mean Corpuscular Hemoglobin 31.4 pg (28.0-33.3); Mean Corpuscular Volume 96.2 fL (83.0-100.0); Mean Platelet Volume 11.3 fL (9.4-12.4); Platelet Count 155 K/mcL (140-400); Red Blood Count 2.39 M/mcL (4.19-5.50); Red Cell Distribution Width 14.8 % (11.5-14.5)
[2019-06-18 05:51] LABS: White Blood Count 0.3 K/mcL (4.3-11.1)
[2019-06-18 05:59] LABS: BUN/Creatinine Ratio 27 (6-26); Blood Urea Nitrogen 17 mg/dL (8-23); Calcium 8.4 mg/dL (8.6-10.3); Carbon Dioxide 26 mEq/L (23-29); Chloride 96 mEq/L (98-107); Glucose 96 mg/dL (70-105); Osmolality,Calculated 277 (280-300); Potassium 3.5 mEq/L (3.5-5.1); Sodium 133 mEq/L (136-145); eGFR For African Americans > 60 (> 60); eGFR For Non-African Americans > 60 (> 60)
[2019-06-18] MEDS: Piperacillin/Tazobactam 3.375 GM in 0.9 % Sodium Chloride Mini Bag 100 ML IVPB SCH ×3 (08:58→23:54)
[2019-06-18] MEDS: *HR* Amiodarone 200 MG TABLET PO SCH (08:59)
[2019-06-18] MEDS: Metoprolol XL (24 HR) Succ 25 MG TAB.ER.24H PO SCH (08:59)
[2019-06-18] MEDS: Magic Mouthwash 10 ML UD Cup PO SCH ×3 (10:20→17:25)
[2019-06-18 11:17] LABS: Lymphocytes % 66.7 %; Segmented Neutrophils % 16.6 %
[2019-06-18 11:18] LABS: Lymphocytes # 0.2 K/mcL (0.6-4.6); Monocytes # 0.1 K/mcL (0.0-1.3); Monocytes % 16.7 %; Neutrophils # 0.1 K/mcL (1.6-8.9)
[2019-06-18 11:40] LABS: Platelet Estimate Slight Decrease (Normal)
[2019-06-18] MEDS: Mirtazapine 15 MG TABLET PO SCH (20:36)
[2019-06-19] MEDS: Latanoprost 2.5 ML BOTTLE BOTH EYES SCH ×2 (00:01→23:00)
[2019-06-19 03:44] LABS: Red Cell Distribution Width 14.6 % (11.5-14.5)
[2019-06-19 03:45] LABS: Basophils % 1.5 %; Eosinophils % 1.5 %; Hematocrit 21.3 % (37.5-50.1); Hemoglobin 6.8 g/dL (12.9-16.9); Lymphocytes # 0.4 K/mcL (0.6-4.6); Lymphocytes % 58.5 %; Mean Corpuscular HGB Conc 31.9 g/dL (31.6-35.5); Mean Corpuscular Hemoglobin 30.9 pg (28.0-33.3); Mean Corpuscular Volume 96.8 fL (83.0-100.0); Mean Platelet Volume 11.3 fL (9.4-12.4); Monocytes # 0.2 K/mcL (0.0-1.3); Monocytes % 32.3 %; Platelet Count 129 K/mcL (140-400); Segmented Neutrophils % 6.2 %
[2019-06-19 03:54] LABS: BUN/Creatinine Ratio 20 (6-26); Blood Urea Nitrogen 16 mg/dL (8-23); Calcium 8.4 mg/dL (8.6-10.3); Carbon Dioxide 27 mEq/L (23-29); Chloride 99 mEq/L (98-107); Glucose 81 mg/dL (70-105); Osmolality,Calculated 282 (280-300); Potassium 3.4 mEq/L (3.5-5.1); Sodium 136 mEq/L (136-145); eGFR For African Americans > 60 (> 60); eGFR For Non-African Americans > 60 (> 60)
[2019-06-19 04:41] LABS: White Blood Count 0.7 K/mcL (4.3-11.1)
[2019-06-19] MEDS: Morphine Sulfate ER (12 HR) 15 MG TABLET.ER PO SCH ×2 (05:27→17:12)
[2019-06-19] MEDS: *HR* Enoxaparin 40 MG/0.4 ML SYRINGE SQ SCH (05:28)
[2019-06-19] MEDS ORDERED: 0.9 % Sodium Chloride 250 ML IVC SCH (07:30)
[2019-06-19] MEDS: Magic Mouthwash 10 ML UD Cup PO SCH ×3 (09:12→17:12)
[2019-06-19] MEDS: *HR* Amiodarone 200 MG TABLET PO SCH (09:12)
[2019-06-19] MEDS: Metoprolol XL (24 HR) Succ 25 MG TAB.ER.24H PO SCH (09:13)
[2019-06-19] MEDS: Piperacillin/Tazobactam 3.375 GM in 0.9 % Sodium Chloride Mini Bag 100 ML IVPB SCH ×3 (09:13→22:47)
[2019-06-19] MEDS: *HR* OxyCODONE/APAP 5/325 TABLET PO PRN (15:22)
[2019-06-19] MEDS ORDERED: Micafungin 100 MG in 0.9 % Sodium Chloride Mini Bag 100 ML IVPB SCH (18:00)
[2019-06-19] MEDS: Mirtazapine 15 MG TABLET PO SCH (22:46)
[2019-06-20] MEDS: *HR* OxyCODONE/APAP 5/325 TABLET PO PRN (03:21)
[2019-06-20] MEDS: Morphine Sulfate ER (12 HR) 15 MG TABLET.ER PO SCH ×2 (05:31→16:57)
[2019-06-20] MEDS: *HR* Enoxaparin 40 MG/0.4 ML SYRINGE SQ SCH (05:32)
[2019-06-20 05:45] LABS: Hematocrit 23.5 % (37.5-50.1); Hemoglobin 7.8 g/dL (12.9-16.9); Mean Corpuscular HGB Conc 33.2 g/dL (31.6-35.5); Red Cell Distribution Width 14.6 % (11.5-14.5)
[2019-06-20 05:46] LABS: Eosinophils % 0.9 %; Lymphocytes # 0.5 K/mcL (0.6-4.6); Lymphocytes % 41.3 %; Mean Corpuscular Hemoglobin 31.1 pg (28.0-33.3); Mean Corpuscular Volume 93.6 fL (83.0-100.0); Mean Platelet Volume 10.6 fL (9.4-12.4); Monocytes # 0.4 K/mcL (0.0-1.3); Monocytes % 36.7 %; Neutrophils # 0.2 K/mcL (1.6-8.9); Platelet Count 100 K/mcL (140-400); Red Blood Count 2.51 M/mcL (4.19-5.50); Segmented Neutrophils % 21.1 %
[2019-06-20 05:48] LABS: White Blood Count 1.1 K/mcL (4.3-11.1)
[2019-06-20 06:05] LABS: Platelet Estimate Decreased (Normal)
[2019-06-20] MEDS: Piperacillin/Tazobactam 3.375 GM in 0.9 % Sodium Chloride Mini Bag 100 ML IVPB SCH ×3 (08:03→23:22)
[2019-06-20] MEDS: Magic Mouthwash 10 ML UD Cup PO SCH ×3 (08:04→16:57)
[2019-06-20] MEDS: *HR* Amiodarone 200 MG TABLET PO SCH (08:04)
[2019-06-20] MEDS: Metoprolol XL (24 HR) Succ 25 MG TAB.ER.24H PO SCH (08:04)
[2019-06-20] MEDS ORDERED: Fluconazole 400 MG/200 ML 400 MG/200 ML BAG IVPB ONE (14:40)
[2019-06-20] MEDS ORDERED: Aminoglycoside Consult 1 EACH MC ONE (15:34)
[2019-06-20] MEDS: Mirtazapine 15 MG TABLET PO SCH (20:48)
[2019-06-20] MEDS: Latanoprost 2.5 ML BOTTLE BOTH EYES SCH (20:48)
[2019-06-21] MEDS: *HR* Enoxaparin 40 MG/0.4 ML SYRINGE SQ SCH (04:13)
[2019-06-21] MEDS: Morphine Sulfate ER (12 HR) 15 MG TABLET.ER PO SCH (04:31)
[2019-06-21] MEDS ORDERED: Isovue-370 500 ML BOTTLE IVP ONE ×2 (07:12)
[2019-06-21] MEDS: Magic Mouthwash 10 ML UD Cup PO SCH ×2 (07:50→12:01)
[2019-06-21] MEDS: *HR* Amiodarone 200 MG TABLET PO SCH (07:50)
[2019-06-21] MEDS: Piperacillin/Tazobactam 3.375 GM in 0.9 % Sodium Chloride Mini Bag 100 ML IVPB SCH (07:50)
[2019-06-21 08:05] LABS: Red Cell Distribution Width 14.6 % (11.5-14.5)
[2019-06-21 08:07] LABS: Hematocrit 23.4 % (37.5-50.1); Hemoglobin 7.8 g/dL (12.9-16.9); Immature Granulocytes % 3.5 % (0-4); Immature Platelets 6.4 % (1.1-6.1); Lymphocytes # 0.5 K/mcL (0.6-4.6); Lymphocytes % 24.7 %; Mean Corpuscular HGB Conc 33.3 g/dL (31.6-35.5); Mean Corpuscular Hemoglobin 31.1 pg (28.0-33.3); Mean Corpuscular Volume 93.2 fL (83.0-100.0); Mean Platelet Volume 11.1 fL (9.4-12.4); Monocytes # 0.5 K/mcL (0.0-1.3); Monocytes % 24.2 %; Red Blood Count 2.51 M/mcL (4.19-5.50); Segmented Neutrophils % 47.6 %
[2019-06-21 08:22] LABS: Platelet Count 82 K/mcL (140-400)
[2019-06-21 08:30] LABS: Dohle Bodies Present (Not Present); Platelet Estimate Decreased (Normal)
[2019-06-21] MEDS ORDERED: Fluconazole 40 MG/ML UDC PO SCH (09:00)
[2019-06-21] MEDS ORDERED: Fluconazole 200 MG/100 ML 200 MG/100 ML BAG IVPB SCH (09:00)
[2019-06-21 12:01] VITALS: BP 98/62
[2019-06-21] MEDS: Metoprolol XL (24 HR) Succ 25 MG TAB.ER.24H PO SCH (12:15)
[2019-06-21] MEDS ORDERED: Ringers Solution, Lactated 1,000 ML IVC ONE (12:32)
[2019-06-21] MEDS: *HR* OxyCODONE/APAP 5/325 TABLET PO PRN (13:12)
== END 2019-06-21 15:35 | disposition home or self-care (01) | DRG 871 ==
LOC: EMEROOARM 12:00 → 2NNU 14:19 → SUATTDRO 14:19 → 2NNU 15:20 → 2ANU 06-16 19:22
PROVIDERS: ADMIT Internal Medicine; ATTEND Internal Medicine

== ENCOUNTER 2019-10-27 16:47 | Observation (INO) ==
[2019-10-27] MEDS ORDERED: Isovue-370 500 ML BOTTLE IVP ONE (17:06)
[2019-10-27 17:12] LABS: Basophils % 0.3 %; Eosinophils # 0.1 K/mcL (0.0-0.6); Hematocrit 45.7 % (37.5-50.1); Hemoglobin 15.4 g/dL (12.9-16.9); Immature Granulocytes % 0.2 % (0-4); Lymphocytes # 1.4 K/mcL (0.6-4.6); Lymphocytes % 11.5 %; Mean Corpuscular HGB Conc 33.7 g/dL (31.6-35.5); Mean Corpuscular Volume 97.9 fL (83.0-100.0); Monocytes # 0.7 K/mcL (0.0-1.3); Monocytes % 5.5 %; Neutrophils # 10.1 K/mcL (1.6-8.9); Platelet Count 175 K/mcL (140-400); Red Blood Count 4.67 M/mcL (4.19-5.50); Red Cell Distribution Width 14.2 % (11.5-14.5); Segmented Neutrophils % 81.5 %; White Blood Count 12.4 K/mcL (4.3-11.1)
[2019-10-27 17:35] LABS: BUN/Creatinine Ratio 8 (6-26); Blood Urea Nitrogen 6 mg/dL (8-23); Calcium 9.6 mg/dL (8.6-10.3); Carbon Dioxide 25 mEq/L (23-29); Chloride 104 mEq/L (98-107); Glucose 99 mg/dL (70-105); Osmolality,Calculated 292 (280-300); Sodium 142 mEq/L (136-145); Troponin I < 0.03 ng/mL (< 0.04); eGFR For African Americans > 60 (> 60); eGFR For Non-African Americans > 60 (> 60)
[2019-10-27] MEDS: Nitroglycerin 0.4 MG TAB.SUBL SL PRN ×3 (18:47→19:04)
[2019-10-27] MEDS ORDERED: levoFLOXacin 750 MG/150 ML 750 MG/150 ML BAG IVPB ONE (18:54)
[2019-10-27] MEDS ORDERED: Naloxone 0.4 MG/ML INJ IVP PRN (19:45)
[2019-10-27] MEDS ORDERED: Ondansetron ODT 4 MG TAB.RAPDIS PO PRN (19:47)
[2019-10-27] MEDS ORDERED: BUPRENORPHINE TP SCH (20:00)
[2019-10-27] MEDS ORDERED: Latanoprost 2.5 ML BOTTLE BOTH EYES SCH (21:00)
[2019-10-27] MEDS: ALPRAZolam 0.5 MG TABLET PO SCH (21:59)
[2019-10-27] MEDS: *HR* Heparin 5,000 UNIT/ML VIAL SQ SCH (22:00)
[2019-10-28] MEDS: *HR* Heparin 5,000 UNIT/ML VIAL SQ SCH (05:12)
[2019-10-28] MEDS ORDERED: Regadenoson 0.4 MG/5 ML SYRINGE IVP ONE (06:26)
[2019-10-28] MEDS ORDERED: Benzonatate 100 MG CAPSULE PO PRN (07:31)
[2019-10-28] MEDS ORDERED: Azithromycin 500 MG in 0.9 % Sodium Chloride 250 ML IVPB SCH (08:00)
[2019-10-28] MEDS ORDERED: cefTRIAXone 1,000 MG in 0.9 % Sodium Chloride Mini Bag 100 ML IVPB SCH (09:00)
[2019-10-28] MEDS ORDERED: Multivit/Ca/Min/Fe/FA 1 TAB TABLET PO SCH (09:00)
[2019-10-28] MEDS ORDERED: Metoprolol XL (24 HR) Succ 25 MG TAB.ER.24H PO SCH (09:00)
[2019-10-28] MEDS: ALPRAZolam 0.5 MG TABLET PO SCH (10:14)
[2019-10-28 12:04] VITALS: BP 126/90
[2019-11-02] MEDS ORDERED: BUPRENORPHINE TP SCH (09:00)
== END 2019-10-28 14:06 | disposition home or self-care (01) ==
LOC: EMEROOARM 16:47 → 2ANU 16:47
PROVIDERS: ADMIT Student in an Organized Health Care Education/Training Program; ATTEND Student in an Organized Health Care Education/Training Program